=== PATIENT | male | born 1960 | race Caucasian/White ===

== ENCOUNTER 2019-08-18 08:34 | Emergency (ER) | payer OTHER ==
[~2019-08-18] VITALS: Ht 170.2 cm; Wt 83.9 kg
--- OUTSIDE RECORDS SUMMARY | ~2019-08-18 | XMS | Encounter Summary ---
Demographics + + + | Address | [address] | | | [place] [address] | + + + | Home Phone | | + + + | Preferred Language | Unknown | + + + | Marital Status | | + + + | Jewish Affiliation | 1013 | + + + | Race | Unknown | + + + | Ethnic Group | Unknown | + + + Author + + + | Author | [facility] | | | and [place] | + + + | Organization | [facility] | | | and [place] | + + + | Address | Unknown | + + + | Phone | Unavailable | + + + Support + + + + + | Name | Relationship | Address | Phone | + + + + + | Monica Hsu | RONEN | [place], | | | | | [place] [address] | | + + + + + Care Team Providers + +------+ + | Care Mail Service Coordinator Name | Role | Phone | + +------+ + | Tariq Byers PA-C | PCP | | + +------+ + Reason for Visit + + + | Reason | Comments | + + + | Follow-up | kidney stones | + + + Encounter Details +--------+---------+ + + + | Date | Type | Department | Care Team | Description | +--------+---------+ + + + | 06/29/ | Office | [facility] | Alvin Odom | Kidney stone on left | | 2019 | Visit | [address] | MD Kari [address] | side (Primary Dx); | | | | [place], [place] | [place], [place] | Gross hematuria | | | | [address] | [address] | | | | | [phone] | | | +--------+---------+ + + + Social History + + + +--------+------+ | Tobacco Use | Types | Packs/Day | Years | Date | | | | | Used | | + + + +--------+------+ | Current Every Day | Cigarettes | 0.5 | | | | Smoker | | | | | + + + +--------+------+ + +---+---+---+ | Smokeless Tobacco: | | | | | Never Used | | | | + +---+---+---+ + + +---------+ + | Alcohol Use | Drinks/We | oz/Week | Comments | | | ek | | | + + +---------+ + | No | 0 | 0.0 | twice weekly | | | Standard | | | | | drinks or | | | | | | | | | | equivalen | | | | | t | | | + + +---------+ + + + + | Sex Assigned at | Date Recorded | | | | + + + | Not on file | | + + + + + + + | Job Start Date | Occupation | Industry | + + + + | Not on file | Not on file | Not on file | + + + + + + + + | Travel History | Travel Start | Travel End | + + + + + + | No recent travel history available. | + + documented as of this encounter Last Filed Vital Signs + + + + | Vital Sign | Reading | Time Taken | + + + + | Blood Pressure | 130/74 | 06/29/2019 1538 PDT | + + + + | Pulse | 66 | 06/29/20191537 PDT | + + + + | Temperature | - | - | + + + + | Respiratory Rate | 17 | 06/29/20191537 PDT | + + + + | Oxygen Saturation | - | - | + + + + | Inhaled Oxygen | - | - | | Concentration | | | + + + + | Weight | 84.5 kg (186 lb 4.6 | 06/29/20191537 PDT | | | oz) | | + + + + | Height | 170.2 cm (5' 7") | 06/29/2019 1538 PDT | + + + + | Body Mass Index | 29.18 | 06/29/2019 1538 PDT | + + + + documented in this encounter Patient Instructions Patient Instructions Hazel Mccarty RN - 06/29/2019 15:45 PDTPreoperative Instructions Your surgery with Dr. Odom has been scheduled for July 14, 2019 at 10:45 AM at [facility]. Please report to the [facility] no later than 9:15 AM. REMEMBER: NOTHING TO EAT OR DRINK AFTER MIDNIGHT July 13, 2019. Take all of your usual medication s with a sip of water. NO ASPIRIN OR ASPIRIN PRODUCTS, NO FISH OIL OR VITAMIN E FOR ONE WEEK PRIOR TO SURGERY. Ty lenol (acetaminophen) and ibuprofen is OK. You will need someone to drive you home after surgery. You will need to get the following testing done prior to surgery: CBC and BMP. Please go to the [facility] today to complete these tests. Call us at [phone] with any questions. [x] Pain management booklet provided to patient. documented in this encounter Progress Notes Alvin Odom MD - 06/29/2019 5896 PDT Chief Complaint Patient presents with Follow-up kidney stones HPI Fawad Dowell is a 58 y.o. male patient of Tariq Byers PA-C here today for eval uation of lower urinary tract symptoms and history of kidney stones. Patient presents today to discuss CT scan His history of a large stone in the left renal pelvis. He continues to experience intermit tent bouts of gross hematuria as well as nausea and left-sided flank pain Assessment Fawad was seen today for follow-up. Diagnoses and all orders for this visit: Kidney stone on left side - Case Request - OR/ENDO/ASC/OB: CYSTOSCOPY Left URETEROSCOPY W/ LASER lithotriopsy and stent Gross hematuria - Case Request - OR/ENDO/ASC/OB: CYSTOSCOPY Left URETEROSCOPY W/ LASER lithotriopsy and stent Plan Patient stone has increased in size somewhat. Plan for ureteroscopy laser lithotripsy and stent. We discussed that this may need to be a staged procedure. Other risks include pain, bleeding, infection, urethral stricture, bladder injury, ureteral perforation, ureteral str icture, renal hematoma and need for further procedures. Past Medical History Past Medical History: Diagnosis Date History of hepatitis C History of kidney stones Lower urinary tract symptoms (LUTS) Methamphetamine use (HCC) Staph infection Tobacco dependence Tuberculosis Venereal disease Past Surgical History Past Surgical History: Procedure Laterality Date CHOLECYSTECTOMY, LAPAROSCOPIC KIDNEY STONE SURGERY ORTHOPEDIC SURGERY left wrist VASECTOMY Family History: Family History Problem Relation Age of Onset Prostate cancer Maternal Grandfather Social History: Social History Socioeconomic History Marital status: Spouse name: Not on file Number of children: Not on file Years of education: Not on file Highest education level: Not on file Tobacco Use Smoking status: Current Every Day Smoker Packs/day: 0.50 Types: Cigarettes Smokeless tobacco: Never Used Substance and Sexual Activity Alcohol use: No Alcohol/week: 0.0 oz Comment: twice weekly Drug use: Yes Types: Methamphetamines No Known Allergies Medications: Current Outpatient Medications: meloxicam (MOBIC) 15 mg tablet, take 1 tablet by mouth once daily, Disp: , Rfl: 0 tamsulosin (FLOMAX) 0.4 mg CAPS, Take 1 capsule by mouth daily (after dinner). For 7 d ays, Disp: , Rfl: Objective BP 130/74 | Pulse 66 | Resp 17 | Ht 1.702 m (5' 7") | Wt 84.5 kg (186 lb 4.6 oz) | BMI 29.18 kg/m General Appearance: Alert, cooperative, no distress, appears stated age, appears dishevele d Head: Normocephalic, without obvious abnormality, atraumatic Eyes: conjunctiva/corneas clear, EOM's intact Throat: Lips, mucosa, and tongue normal; no gross deformities, mmm Neck: Supple, symmetrical, no adenopathy Lungs: Regular, unlabored breathing MS Mild left CVA tenderness, no spinal tenderness, no scoliosis present Abdomen: Soft, mild left upper quadrant tenderness, no rebound or guarding Extremities: Extremities normal, atraumatic, no cyanosis, clubbing, or edema Pulses: Radial pulses 2+ and symmetric Skin: Warm and dry Lymph nodes: Cervical and supraclavicular nodes normal Neurologic: Gait normal, CN 2-12 grossly intact; Strength and sensation grossly normal in b ilateral upper and lower extremities Data: CT scan abdomen pelvis June 2019 I personally viewed and interpreted CT scan images. Significant for normal-appearing right kidney. There is no evidence of hydronephrosis stone or mass. Left kidney demonstrates a large stone in the renal pelvis approximately 20 mm x 17 x 14. This is increased in size sl ightly since October. There is no significant hydronephrosis noted. There does appear to be some smaller stones in the lower pole. Images not available CT scan November 03, 2018 1. Large left renal pelvis stone with mild pelvocaliectasis. Nonobstructing stone lower p ole right kidney 2. Mild concentric thickened appearance of the urinary bladder could suggest a cystitis c orrelate with urinalysis results 3. Severe lumbar spondylosis correlate with neurologic examination MRI would be more sens itive and specific for nerve root impingement. 4. Prior cholecystectomy Results for orders placed or performed in visit on 06/22/19 Urinalysis, Microscopic Only, with Culture if Indicated Result Value Ref Range WBC UA 10-15 (A) 0 - 2 /HPF RBC UA >100 (A) 0 - 2 /HPF SQUAMOUS EPITHELIAL UA 2-5 (A) 0 - 2 /LPF BACTERIA UA Negative Negative /HPF MUCUS UA Present (A) Negative /LPF URINE COMMENT Urine Culture Not Indicated POCT Urinalysis Result Value Ref Range Color, UA, POC Caterina (A) Yellow, Light Yellow Clarity, UA, POC Cloudy Glucose, UA, POC Negative Negative Bilirubin, UA, POC Negative Negative Ketones, UA, POC Negative Negative, 100 mg/dL Specific Lorraine, UA, POC 1.025 1.001 - 1.030 Blood, UA, POC Moderate (A) Negative pH, UA, POC 6.5 5.0, 6.0, 7.0, 8.0, 5.5, 6.5, 7.5 Protein, UA, POC 100 mg/dL (A) Negative Urobilinogen, UA, POC 0.2 0.2, Negative, Normal, < 0.2 mg/dL, 1 mg/dL, < 0.2 E.U./dl, 1.0 E.U./dL, 0.2 mg/dL Nitrite, UA, POC Negative Negative Leukocyte Esterase, UA, POC Negative Negative Reducing Substances, Urine Ictotest Negative Remark Lab Results Component Value Date CREA 0.99 03/01/2018 Tariq Byers PA-C's notes were reviewed in clinic today. No follow-ups on file.. This document was generated in part using voice recognition software. Frequent wrong word or sound-alike substitutions may have occurred due to the inherent limitations of the voice recognition software. Although I have attempted to edit the content, I have not thoroughly proofread this note, and pharmacy tech customer service errors are very likely to occur. CC: Tariq Byers PA-C documented in thi s encounter Plan of Treatment +--------+---------+ + + + | Date | Type | Specialty | Care Team | Description | +--------+---------+ + + + | 10/03/ | Office | Urology | Alvin Odom | | | 2018 | Visit | | MD Kari [address] [place] [address] | | | | | | [place], [place] | | | | | | [address] | | | | | | | | +--------+---------+ + + + | 10/11/ | Office | Orthopedic Surgery | Oliver Flowers | | | 2018 | Visit | | MD [address] | | | | | | [address] [place] | | | | | | [place] [address] | | | | | | [phone] | | | | | | | | +--------+---------+ + + + documented as of this encounter Procedures + +--------+ + + + | Procedure Name | Priori | Date/Time | Associated Diagnosis | Comments | | | ty | | | | + +--------+ + + + | IMAGING REPORT - | | 06/23/2019 | | Results for this | | EXTERNAL SCAN | | 0:00 PDT | | procedure are in the | | | | | | results section. | + +--------+ + + + documented in this encounter Results IMAGING REPORT - EXTERNAL SCAN (06/23/2019 0:00 PDT) + + + | Narrative | Performed At | + + + | Ordered by an | | | unspecified provider. | | + + + documented in this encounter Visit Diagnoses + + | Diagnosis | + + | Kidney stone on left side - Primary Calculus of kidney | + + | Gross hematuria | + + documented in this encounter
--- OUTSIDE RECORDS SUMMARY | ~2019-08-18 | XMS | Encounter Summary ---
Demographics + + + | Address | [address] | | | [place] [address] | + + + | Home Phone | | + + + | Preferred Language | Unknown | + + + | Marital Status | | + + + | Protestant Affiliation | 1013 | + + + | Race | Unknown | + + + | Ethnic Group | Unknown | + + + Author + + + | Author | [facility] | | | and [place] | + + + | Organization | [facility] | | | and [place] | + + + | Address | Unknown | + + + | Phone | Unavailable | + + + Support + + + + + | Name | Relationship | Address | Phone | + + + + + | Monica Hsu | RONEN | [place], | | | | | [place] [address] | | + + + + + Care Team Providers + +------+ + | Care Distribution Field Engineer Name | Role | Phone | + +------+ + | Tariq Byers PA-C | PCP | | + +------+ + Reason for Referral Evaluate & Treat (Routine) + + + + + + + | Status | Reason | Specialty | Diagnoses / | Referred By | Referred To | | | | | Procedures | Contact | Contact | + + + + + + + | Authorized | Specialty | Physical | Diagnoses | Allyson Flowers | | | Services | Therapy | Primary | [place] | [facility] | | | Required | | osteoarthrit | Judaism, | PHYSICAL | | | | | is of right | [address] | | | | | shoulder | [address] | [place] | | | | | Impingement | [place], | [place], [place] | | | | | syndrome of | [place] | [address] | | | | | left | [address] | Phone: | | | | | shoulder | Phone: | [phone] | | | | | Impingement | [phone] | Fax: | | | | | syndrome of | Fax: | [phone] | | | | | right | [phone] | | | | | | shoulder | | | + + + + + + + Reason for Visit + + + | Reason | Comments | + + + | New Patient | | + + + | Shoulder Pain | Bilateral | + + + Evaluate & Treat (Routine) + +--------+ + + + + | Status | Reason | Specialty | Diagnoses / | Referred By | Referred To | | | | | Procedures | Contact | Contact | + +--------+ + + + + | Authorized | | Orthopedic | Diagnoses | [place], | Kristie, | | | | Surgery | Bilateral | Tariq | Oliver | | | | | shoulder | PA-C [address] | [address] | | | | | pain | [place] [facility] | [address] | | | | | | [place] | [address] [place] | | | | | | [place], [place] | [place], [place] | | | | | | [address] | [address] | | | | | | Phone: | Phone: | | | | | | [phone] | [phone] | | | | | | Fax: | Fax: | | | | | | [phone] | [phone] | + +--------+ + + + + Encounter Details +--------+---------+ + + + | Date | Type | Department | Care Team | Description | +--------+---------+ + + + | 08/11/ | Office | [facility] | Oliver Flowers | Primary | | 2019 | Visit | ORTHOPEDIC SURGERY | MD [address] | osteoarthritis of | | | | [address] [facility] | [address] | right shoulder | | | | [place], [place] | [place] [address] | (Primary Dx); | | | | [address] | [phone] | Impingement syndrome | | | | [phone] | | of left shoulder; | | | | | | Impingement syndrome | | | | | | of right shoulder | +--------+---------+ + + + Social History [...] | | + + +---------+ + | Not Currently | 0 | 0.0 | | | | Standard | | | [...] + + + | Blood Pressure | - | - | + + + + | Pulse | - | - | + + + + | Temperature | - | - | + + + + | Respiratory Rate | - | - | + + + + | Oxygen Saturation | - | - | + + + + | Inhaled Oxygen | - | - | | Concentration | | | + + + + | Weight | 87.5 kg (192 lb 14.4 | 08/11/20191610 PDT | | | oz) | | + + + + | Height | 170.2 cm (5' 7") | 08/11/2019 1611 PDT | + + + + | Body Mass Index | 30.21 | 08/11/2019 1611 PDT | + + + + documented in this encounter Progress Notes Oliver Flowers MD - 08/11/2019 1600 PDTFormatting of this note might be differe nt from the original. [facility] HISTORY AND PHYSICAL EXAMINATION Pt. Name/Age/: Fawad Dowell 58 y.o. 1960 Primary Care Physician: Tariq Byers Chief Complaint/Reason for Visit: New Patient and Shoulder Pain (Bilateral) History of Present Illness: The patient is a pleasant 58 y.o. male who presents with bilate ral shoulder pain. The patient reports that his shoulders hurt him significantly. They hav e hurt him for years. There has been no particular injury to them. He attributes it to wea r and tear over the years. 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 He does also state that he has some numbness on top of his left shoulder. He suspects that he might have a rotator cuff tear or arthritis in both shoulders. He repo rts that laying on his shoulders particularly causes him pain. Rotating from side to side s eems to make it feel better. He has taken Mobic for this. He has done no steroid injection s and had no physical therapy. His pain is a 6 out of 10 at baseline. It is a 9 out of 10 at its worst. He reports that his pain has been the same over time. He is able to do his n ormal daily activities albeit slowly. The patient is a current smoker. He does have a hist ory of neck and back pain. His neck pain has generally been worse than his back pain. Past Medical History: Past Medical History: Diagnosis Date History of hepatitis C History of kidney stones Kidney stone on left side 06/29/2019 Lower urinary tract symptoms (LUTS) Methamphetamine use (HCC) Staph infection Tobacco dependence Tuberculosis Venereal disease Past Surgical History: Procedure Laterality Date CHOLECYSTECTOMY, LAPAROSCOPIC KIDNEY STONE SURGERY ORTHOPEDIC SURGERY left wrist URETEROSCOPY Left 07/14/2019 Procedure: CYSTOSCOPY Left URETEROSCOPY W/ LASER lithotriopsy and stent PLACEMENT; Surgeo n: Alvin Odom MD; Location: [facility] MAIN OR VASECTOMY Allergies: No Known Allergies Current Medications: Current Outpatient Medications Medication Sig Dispense Refill HYDROcodone-acetaminophen (NORCO) 5-325 mg per tablet Take 1-2 tablets by mouth every 4 hours as needed for Pain. (Patient not taking: Reported on 08/11/2019) 10 tablet 0 meloxicam (MOBIC) 15 mg tablet take 1 tablet by mouth once daily 0 tamsulosin (FLOMAX) 0.4 mg CAPS Take 1 capsule by mouth nightly for 30 days. (Patient n ot taking: Reported on 08/11/2019) 30 capsule 0 varenicline (CHANTIX ADRIANNA) 0.5 MG X 11 & 1 MG X 42 tablet Take 0.5 mg one daily on days 1-3 and 0.5 mg twice daily on days 4-7. Then 1 mg twice daily for a total of 12 weeks. No current facility-administered medications for this visit. Family History: Family History Problem Relation Age of Onset Prostate cancer Maternal Grandfather Social History: Social History Socioeconomic History Marital status: Spouse name: Not on file Number of children: Not on file Years of education: Not on file Highest education level: Not on file Social Needs Financial resource strain: Not on file Food insecurity - worry: Not on file Food insecurity - inability: Not on file Transportation needs - medical: Not on file Transportation needs - non-medical: Not on file Occupational History Not on file Tobacco Use Smoking status: Current Every Day Smoker Packs/day: 0.50 Types: Cigarettes Smokeless tobacco: Never Used Substance and Sexual Activity Alcohol use: Not Currently Alcohol/week: 0.0 oz Drug use: Not Currently Types: Methamphetamines Comment: None since January 19, 2019 Sexual activity: Not on file Other Topics Concern Not on file Social History Narrative Not on file Review of Systems All of these are negative unless otherwise marked Eyes: [] Double vision [x] Glasses/contacts [x] Failing vision Respiratory: [] Asthma/Wheezing [] Pneumonia [] Night sweats [] Shortness of breath [] Chronic cough [] Coughing up blood [] Exposure to tuberculosis Cardiovascular: [] Heart Problems [] Hypertension [] Heart murmur [] Palpitations [] Rheumatic fever [] Phlebitis [] Chest pain [] Ankle swelling [] Leg cramps [] Racin g heart [] Skipping beats [] Blood clots Urinary Tract: [] Painful urination [x] Kidney Stones [] Any urine leakage [] Weak urine stream [x] Night urination [] Urine infections [] Bedwetting [x] Blood in urine Ear/Nose/Throat: [] Frequent Colds [] Sinus Disease [] Nose obstruction [] Sneezing Spells [] Change in taste [x] Artificial teeth [x] Ears ringing [] Ear pain [x] Hearing lo ss [x] Teeth problems [] Hoarseness [] Neck swelling [] Sore throat [] Congestion [] Nosebleeds [] Nasal allergies Gastrointestinal: [x] Abdominal pain [] Heartburn [] Blood from rectum [] Colitis [x] Gallbladder problems [] Troub le swallowing [] Bloated stomach [] Change in stools [] Vomiting blood [] Nausea [] Hemorrhoids [] Jaundice [ x] Hepatitis [] Diarrhea [] Constipation [] Diverticulitis Musculoskeletal: [] Physical handicaps [x] Back or shoulder pain []Rheumatoid disease [] Osteoarthritis [x] Joint pain [x] Joint swelling []Gout [] Leg cramps at night Skin: [] Skin rashes [] Itching/Burning [] Skin bruises easil y [] Artificial tanning [] Skin cancer [] Hair loss [] Changes in moles Psychiatric: [] Depression [] Suicidal thoughts [] Sleep pattern changes [] Appetite changes [x] Recent counseling [] Nervousness/anxiety [] Physical violence [x] Marital problems Neurological: [] Headaches [] Seizures [] Stroke/TIA [] Faintness [] Tremors [x] Numbness [] Dizziness [] Changes in handwriting [] Memory loss [] Shooting pains Endocrine: [] Thyroid [] Diabetes Systemic: [x]Weight loss/gain (over 10 lbs) []Fever/chills []Fatigue [x] Sleeping Difficulties [] Speech change [] Voice change Admission Weight: Weight: 87.5 kg (192 lb 14.4 oz) BMI: Body mass index is 30.21 kg/m . Physical Examination: Ht 1.702 m (5' 7") | Wt 87.5 kg (192 lb 14.4 oz) | BMI 30.21 kg/m General: Alert, oriented, no acute distress HEENT: Normocephalic, atraumatic Cardiovascular: Regular rate and rhythm Respiratory: Breathing normally at a regular rate Ortho Exam Bilateral Shoulder Exam Right Left Forward Flexion 160 160 Abduction 160 160 External Rotation 45 45 Internal rotation T10 T10 Tender to Palpation: absent External Rotation Strength 5/5 Internal Rotation Strength 5/5 Hawkin's Negative Neer's Positive Delaney's Positive Radial pulse 2+. Sensation intact to light touch in the first dorsal webspace, and the pads of the small and index fingers. Able to flex and extend the thumb at the interphalangeal sade int, make an "ok" sign, adduct and abduct the fingers, and oppose the thumb to the small fin sun. His thumbs are internally rotated when facing forward and relax. This consistent with some forward posturing. He does localize a lot of the pain to his periscapular musculature. Diagnostic Studies: Imaging Axillary laterals of the bilateral shoulders obtained today in addition to previous 3 views of the shoulders dated 01/03/2019. The patient has a well reduced glenohumeral joint on all views. The humeral head is centered on the glenoid in all views. He has mild to moderate osteoarthrosis of the right gland humeral joint with no significant osteoarthrosis of the le ft glenohumeral joint. Labs- Lab Results Component Value Date NA 136 06/29/2019 K 3.7 06/29/2019 CL 105 06/29/2019 CO2 28 06/29/2019 ANIONGAP 3 06/29/2019 GLU 103 06/29/2019 BUN 15 06/29/2019 CREA 0.99 06/29/2019 GFRNONAA >60 06/29/2019 CALCIUM 9.8 06/29/2019 ALBUMIN 4.2 07/14/2019 BILITOT 0.9 07/14/2019 TOTALPROTEIN 6.6 07/14/2019 AST 21 07/14/2019 ALT 20 07/14/2019 ALKPHOS 72 07/14/2019 WBC 6.2 06/29/2019 HGB 14.9 06/29/2019 HCT 43.5 06/29/2019 MCV 96.7 06/29/2019 LABPLAT 219 11/03/2018 PLT 245 06/29/2019 INR 0.9 07/14/2019 Assessment and Plan: 1. Primary osteoarthritis of right shoulder XR Shoulder Left 1 Vw XR Shoulder Right 1 Vw 2. Impingement syndrome of left shoulder 3. Impingement syndrome of right shoulder The patient is a pleasant 58 y.o. male who presents with bilateral shoulder pain with poor posturing and mild to moderate right shoulder osteoarthritis. Treatment options were discuss ed with the patient including non-operative treatment modalities. Considering the nature of the patient's condition, decision was made to proceed with bilateral right shoulder subacrom ial injections. I also want him to work with therapy on his shoulder posturing. He did not really have pain specifically localized to the joint. He pointed to the side of his arm an d seated there is pain can radiate down the side of his arm. This would be more consistent with pain around the rotator cuff. Hopefully between the injections and therapy we can make him feel a lot better. I will see him back in 2 months. Risks, benefits and alternatives to injection were discussed with the patient. All of the p atient's questions were answered regarding the procedure. Consent was obtained. The patient agreed to undergo an injection of the Bilateral subacromial joints. The area was prepared st erilely using Betadine. A cold spray was used to numb the skin. 5 mLs of 1% lidocaine and 40 mg of kenalog were injected in the standard fashion first in the left side and then in the right side. This was well tolerated by the patient. Follow-up: Return in about 2 months (around 10/11/2019). with no x-ray Portions of this report were transcribed using voice recognition software. Every effort wa s made to ensure accuracy; however, inadvertent computerized prevention specialist errors may be pre sent. I appreciate the opportunity to help with the management of this patient. Oliver Flowers MD documented in this encounter Plan of Treatment +--------+---------+ + + + | Date | Type | Specialty | Care Team | Description | +--------+---------+ + + + | 10/03/ | Office | Urology | Alvin Odom | | | 2018 | Visit | | MD Kari [address] | | | | | | [place] | | | | | | [address] | | | | | | | | +--------+---------+ + + + | 10/11/ | Office | Orthopedic Surgery | Oliver Flowers | | | 2018 | Visit | | MD [address] | | | | | | [address] | | | | | | [place] [address] | | | | | | [phone] | | | | | | | | +--------+---------+ + + + + +--------+ + + | Name | Priori | Associated Diagnoses | Order Schedule | | | ty | | | + +--------+ + + | [facility] Physical | Routin | Primary | Ordered: 08/11/2019 | | Therapy, External - AMB Referral | e | osteoarthritis of | | | | | right shoulder | | | | | Impingement syndrome | | | | | of left shoulder | | | | | Impingement syndrome | | | | | of right shoulder | | + +--------+ + + documented as of this encounter Results XR Shoulder Right 1 Vw (08/11/2019 16:09 PDT) + + | Specimen | + + | | + + + + + | Narrative | Performed At | + + + | EXAM:XR SHOULDER RIGHT 1 VW CLINICAL HISTORY: BILATERAL SHOULDER | [facility] | | PAIN COMPARISON: 01/03/2019. FINDINGS/IMPRESSION -A single | | | axillary view of the shoulder shows no malalignment. There are | | | degenerative changes along the margin of the glenoid. Mild | | | hypertrophic change in the distal clavicle. Dictated and Signed | | | by: Prem Elizalde MD Electronically signed: 08/11/2019 5:31 PM | | | | | + + + + + | Procedure Note | + + | Mike, Shiva Results In - 08/11/2019 1734 PDT EXAM:XR SHOULDER RIGHT 1 VW | | | | CLINICAL HISTORY: BILATERAL SHOULDER PAIN | | | | COMPARISON: 01/03/2019. | | | | FINDINGS/IMPRESSION -A single axillary view of the shoulder shows no | | malalignment. There are degenerative changes along the margin of the glenoid. | | Mild hypertrophic change in the distal clavicle. | | | | | | Dictated and Signed by: Prem Elizalde MD | | Electronically signed: 08/11/2019 5:31 PM | + + + +---------+ + + | Performing | Address | City/State/Zipcode | Phone Number | | Organization | | | | + +---------+ + + | [facility] | | | | + +---------+ + + XR Shoulder Left 1 Vw (08/11/2019 16:09 PDT) + + | Specimen | + + | | + + + + + | Narrative | Performed At | + + + | EXAM:XR SHOULDER LEFT 1 VW CLINICAL HISTORY: BILATERAL SHOULDER | [facility] | | PAIN COMPARISON: 01/03/2019 FINDINGS/IMPRESSION -A single | | | axillary view of the left shoulder shows no malalignment. Mild | | | degenerative changes along the margin of the glenoid. Dictated | | | and Signed by: Prem Elizalde MD Electronically signed: 08/11/2019 | | | 5:31 PM | | + + + + + | Procedure Note | + + | Shiva Mckeon Results In - 08/11/2019 1734 PDT EXAM:XR SHOULDER LEFT 1 VW | | | | CLINICAL HISTORY: BILATERAL SHOULDER PAIN | | | | COMPARISON: 01/03/2019 | | | | FINDINGS/IMPRESSION -A single axillary view of the left shoulder shows no | | malalignment. Mild degenerative changes along the margin of the glenoid. | | | | | | Dictated and Signed by: Prem Elizalde MD | | Electronically signed: 08/11/2019 5:31 PM | + + + +---------+ + + | Performing | Address | City/State/Zipcode | Phone Number | | Organization | | | | + +---------+ + + | [facility] | | | | + +---------+ + + documented in this encounter Visit Diagnoses + + | Diagnosis | + + | Primary osteoarthritis of right shoulder - Primary Primary localized osteoarthrosis, | | shoulder region | + + | Impingement syndrome of left shoulder Other affections of shoulder region, not | | elsewhere classified | + + | Impingement syndrome of right shoulder Other affections of shoulder region, not | | elsewhere classified | + + documented in this encounter Administered Medications + +--------+ +-------+------+ + | Medication Order | MAR | Action | Dose | Rate | Site | | | Action | Date | | | | + +--------+ +-------+------+ + | triamcinolone acetonide | Given | 08/11/20 | 40 mg | | Shoulder | | (KENALOG-40) 40 mg/mL injection | | 19 16:35 | | | -Right | | 40 mg 40 mg, Intra-articular, | | PDT | | | | | ONCE, [facility] 08/11/19 at 1745, For 1 | | | | | | | dose, Fabrizio well. Not for IV | | | | | | | use., | | | | | | + +--------+ +-------+------+ + +---+---+ | | | +---+---+ + +-------+ +-------+---+ + | triamcinolone acetonide | Given | 08/11/20 | 40 mg | | Shoulder | | (KENALOG-40) 40 mg/mL injection | | 19 16:35 | | | -Left | | 40 mg 40 mg, Intra-articular, | | PDT | | | | | ONCE, [facility] 08/11/19 at 1745, For 1 | | | | | | | dose, Fabrizio well. Not for IV | | | | | | | use., | | | | | | + +-------+ +-------+---+ + +---+---+ | | | +---+---+ documented in this encounter
--- OUTSIDE RECORDS SUMMARY | ~2019-08-18 | XMS | Encounter Summary ---
Demographics + + + | Address | [address] | | | [place] [address] | + + + | Home Phone | | + + + | Preferred Language | Unknown | + + + | Marital Status | | + + + | Tenriism Affiliation | 1013 | + + + | Race | Unknown | + + + | Ethnic Group | Unknown | + + + Author + + + | Author | [facility] | | | and [place] | + + + | Organization | [facility] | | | and [place] | + + + | Address | Unknown | + + + | Phone | Unavailable | + + + Support + + + + + | Name | Relationship | Address | Phone | + + + + + | Monica Hsu | RONEN | [place], | | | | | [place] [address] | | + + + + + Care Team Providers + +------+ + | Care Home Delivery Driver Name | Role | Phone | + +------+ + | Tariq Byers PA-C | PCP | | + +------+ + Reason for Visit Auth/Cert +--------+--------+ + + + + | Status | Reason | Specialty | Diagnoses / | Referred By | Referred To | | | | | Procedures | Contact | Contact | +--------+--------+ + + + + | | | | Diagnoses | | eLi, | | | | | Kidney | | Alvin Pierce, | | | | | anneliese sahu | | MD Shayy GELLER | | | | | left side | | [address] [place] | | | | | [place] | | [place], [place] | | | | | hematuria | | [address] Phone: | | | | | Procedures | | [phone] | | | | | [place] | | Fax: | | | | | CYSTO/URETER | | [phone] | | | | | O | | | | | | | W/LITHOTRIPS | | | | | | | Y &INDWELL | | | | | | | STENT INSRT | | | | | | | CYSTOSCOPY | | | | | | | Left | | | | | | | URETEROSCOPY | | | | | | | W/ LASER | | | | | | | lithotriopsy | | | | | | | and stent | | | +--------+--------+ + + + + Encounter Details +--------+ + + + + | Date | Type | Department | Care Team | Description | +--------+ + + + + | 07/14/ | Hospital | [facility] | Alvin Odom | Kidney stone on left | | 2019 | Encounter | [facility] | MD Shayy Pierce | side; Gross | | | | [address] | [place], [place] | hematuria | | | | [place], [place] | [address] | | | | | [address] | | | | | | [phone] | | | +--------+ + + + + Social History + + [...] + + + | Blood Pressure | 130/80 | 07/14/2019 1200 PDT | + + + + | Pulse | 64 | 07/14/2019 1200 PDT | + + + + | Temperature | 37.1 C (98.8 F) | 07/14/2019 1040 PDT | + + + + | Respiratory Rate | 12 | 07/14/2019 1115 PDT | + + + + | Oxygen Saturation | 99% | 07/14/2019 1200 PDT | + + + + | Inhaled Oxygen | - | - | | Concentration | | | + + + + | Weight | 85.9 kg (189 lb 6 | 07/14/2019638 PDT | | | oz) | | + + + + | Height | 170.2 cm (5' 7") | 07/14/2019638 PDT | + + + + | Body Mass Index | 29.66 | 07/14/2019638 PDT | + + + + documented in this encounter Discharge Instructions Instructions Lisette Moreno RN - 07/14/2019 Cystoscopy Cystoscopy is a procedure that lets your doctor look directly inside your urethra and bladd er. It can be used to: Help diagnose a problem with your urethra, bladder, or kidneys. Take a sample (biopsy) of bladder or urethral tissue. Treat certain problems (such as removing kidney stones). Place a stent to bypass an obstruction. Take special X-rays of the kidneys. Based on the findings, your doctor may recommend other tests or treatments. What is a cystoscope? A cystoscope is a telescope-like instrument that contains lenses and fiberoptics (small gla ss wires that make bright light). The cystoscope may be straight and rigid, or flexible to b end around curves in the urethra. The doctor may look directly into the cystoscope, or proje ct the image onto a monitor. Getting ready Ask your doctor if you should stop taking any medicines before the procedure. Ask whether you should avoid eating or drinking anything after midnight before the proce dure. Follow any other instructions your doctor gives you. Tell yourdoctor before the exam if you: Take any medicines, such as aspirin or blood thinners Have allergies to any medicines Are The procedure Cystoscopy is done in the doctor s office, surgery center, or hospital. The doctor and a nurse are present during the procedure. It takes only a few minutes, longer if a biopsy, X-r ay, or treatment needs to be done. During the procedure: You lie on an exam table on your back, knees bent and legs apart. You are covered with a drape. Your urethra and the area around it are washed. Anesthetic jelly may be applied to numb the urethra. Other pain medicine is usually not needed. In some cases, you may be offered a mild sedative to help you relax. If a more extensive procedure is to be done, such as a biop sy or kidney stone removal, general anesthesia may be needed. The cystoscope is inserted. A sterile fluid is put into the bladder to expand it. You ma y feel pressure from this fluid. When the procedure is done, the cystoscope is removed. After the procedure If you had a sedative, general anesthesia, or spinal anesthesia, you must have someone driv e you home. Once you re home: Drink plenty of fluids. You may have burning or light bleeding when you urinate this is normal. Medicines may be prescribed to ease any discomfort or prevent infection. Take these as d irected. Call your doctor if you have heavy bleeding or blood clots, burning that lasts more than a day, a fever [id number] (38 C), or trouble urinating. Date Last Reviewed: 11/09/201619996587-1493 [employer]. [address] [place] [address]. All righ ts reserved. This information is not intended as a substitute for professional medical care. Always follow your healthcare professional's instructions. Recovery After Procedural Sedation (Adult) You have been given medicine by vein to make you sleep during your procedure. This may have included both a pain medicine and sleeping medicine. Most of the effects have worn off. But you may still have some drowsiness for the next 6 to 8 hours. Home care Follow these guidelines when you get home: For the next 8 hours, you should be watched by a responsible adult. This person should m elisabeth sure your condition is not getting worse. Don't drink any alcoholfor the next [address], operate dangerous machinery,make important business or personal decisions , or sign legal documentsduring the next 24 hours. Note: Your healthcare provider may tell you not to take any medicine by mouth for pain or s leep in the next 4 hours. These medicines may react with the medicines you were given in the hospital. This could cause a much stronger response than usual. Follow-up care Follow up with your healthcare provider if you are not alert and back to your usual level o f activity within 12 hours. When to seek medical advice Call your healthcare provider right away if any of these occur: Drowsiness gets worse Weakness or dizziness gets worse Repeated vomiting You can't be awakened Date Last Reviewed: 08/26/201619992950-0376 [employer]. [address] [place] [address]. All righ ts reserved. This information is not intended as a substitute for professional medical care. Always follow your healthcare professional's instructions. Patient is to follow-up in 2 weeks with cystoscopy and stent removal. documented in this encounter Medications at Time of Discharge + + + +---------+ + + | Medication | Sig | Dispensed | Refills | Start | End Date | | | | | | Date | | + + + +---------+ + + | meloxicam (MOBIC) | take 1 tablet by | | 0 | 05/30/20 | | | 15 mg tablet | mouth once daily | | | 19 | | + + + +---------+ + + | | Take 1-2 tablets by | 30 | 0 | 07/14/20 | | | HYDROcodone-acetamin | mouth every 4 hours | tablet | | 19 | 9 | | ophen (NORCO) 5-325 | as needed for Pain. | | | | | | mg per tablet | | | | | | + + + +---------+ + + | | TAKE 1 TABLET BY | | 0 | 06/29/20 | | | HYDROcodone-acetamin | MOUTH EVERY 6 HOURS | | | 19 | 9 | | ophen (NORCO) 5-325 | NEEDED FOR | | | | | | mg per tablet | MODERATE TO SEVERE | | | | | | | PAIN DO NOT EXCEED 4 | | | | | | | TABLETS IN 24 HOURS | | | | | + + + +---------+ + + | tamsulosin | Take 1 capsule by | 30 | 0 | 07/14/20 | | | (FLOMAX) 0.4 mg CAPS | mouth nightly for 30 | capsule | | 19 | 9 | | | days. | | | | | + + + +---------+ + + | tamsulosin | Take 1 capsule by | | 0 | 11/01/20 | | | (FLOMAX) 0.4 mg CAPS | mouth daily (after | | | 18 | 9 | | | dinner). For 7 days | | | | | + + + +---------+ + + documented as of this encounter Plan of Treatment +--------+---------+ + [...] | | | | | | [place] [address] | | | | | | [phone] | | | | | | | | +--------+---------+ + + + documented as of this encounter Procedures + +--------+ + + + | Procedure Name | Priori | Date/Time | Associated Diagnosis | Comments | | | ty | | | | + +--------+ + + + | FL PYELOGRAM | Routin | 07/14/2019 | | Results for this | | RETROGRADE | e | 10:35 PDT | | procedure are in the | | | | | | results section. | + +--------+ + + + | CALCULI ANALYSIS | Routin | 07/14/2019 | | Results for this | | | e | 10:30 PDT | | procedure are in the | | | | | | results section. | + +--------+ + + + | CYSTOSCOPY | | 07/14/2019 | Kidney stone on | | | URETEROSCOPY W/ | | 8:47 PDT | left side Gross | | | LASER | | | hematuria | | + +--------+ + + + | PTT | Routin | 07/14/2019 | | Results for this | | | e | 7:43 PDT | | procedure are in the | | | | | | results section. | + +--------+ + + + | PROTIME INR | Routin | 07/14/2019 | | Results for this | | | e | 7:43 PDT | | procedure are in the | | | | | | results section. | + +--------+ + + + | HEPATIC FUNCTION | Routin | 07/14/2019 | | Results for this | | PANEL | e | 7:43 PDT | | procedure are in the | | | | | | results section. | + +--------+ + + + documented in this encounter Results FL Jonny Retrograde (07/14/2019 10:35 PDT) + + | Specimen | + + | | + + + + + | Narrative | Performed At | + + + | This exam has been auto-finalized and the interpretation may exist | [facility] | | elsewhere in the chart. | | + + + + +---------+ + + | Performing | Address | City/State/Zipcode | Phone Number | | Organization | | | | + +---------+ + + | [facility] | | | | + +---------+ + + Calculi Analysis (07/14/2019 10:30 PDT) + + + + + + | Component | Value | Ref Range | Performed | Pathologist | | | | | At | Signature | + + + + + + | CALCULI | CommentComment: Specimen | mm | REFERENCE | | | SIZE | received as fragments. | | [facility] | | | | | | - BKR | | + + + + + + | Stone | CommentComment: | | REFERENCE | | | Composition | Percentage (Represents | | [facility] | | | | the % composition) | | - BKR | | + + + + + + | Color | Aranda | | REFERENCE | | | | | | [facility] | | | | | | - [facility]KR | | + + + + + + | Calculi | 206.8 | mg | REFERENCE | | | Weight | | | [facility] | | | | | | - BKR | | + + + + + + | Ca | 40 | % | REFERENCE | | | Oxalate,Dih | | | [facility] | | | ydrate | | | - BKR | | + + + + + + | Ca | 45 | % | REFERENCE | | | Oxalate,Mon | | | [facility] | | | ohydr. | | | - BKR | | + + + + + + | STONE CA | 15 | % | REFERENCE | | | PHOSPHATE | | | [facility] | | | | | | - BKR | | + + + + + + | Nidus | No Nidus visualized | | REFERENCE | | | | | | [facility] | | | | | | - BKR | | + + + + + + | Comment | Note:Comment: Please do | | REFERENCE | | | | not submit specimens on | | [facility] | | | | Q-Tips, in tape, on | | - BKR | | | | filters, or inliquids | | | | | | such as blood, urine or | | | | | | formalin. This may | | | | | | cause | | | | | | unnecessarybiohazards, | | | | | | erroneous results and/or | | | | | | delay in the processing | | | | | | of thespecimen. | | | | + + + + + + | Photo | CommentComment: | | REFERENCE | | | | Photograph will follow | | [facility] | | | | under separate cover. | | - BKR | | + + + + + + | CALCULI | CommentComment: | | REFERENCE | | | COMMENT | Physician questions | | [facility] | | | | regarding Calculi | | - BKR | | | | Analysis contact [facility] | | | | | | at:[phone]. | | | | + + + + + + | Please note | CommentComment: Calculi | | REFERENCE | | | | report with photograph | | [facility] | | | | will follow via | | - BKR | | | | computer, mail orcourier | | | | | | delivery. | | | | + + + + + + | Disclaimer | CommentComment: This | | REFERENCE | | | | test was developed and | | LAB [facility] | | | | its performance | | - BKR | | | | characteristicsdetermine | | | | | | d by [facility]. It has not | | | | | | been cleared or | | | | | | approvedby the Food and | | | | | | Drug Administration. | | | | + + + + + + + + | Specimen | + + | Tissue | + + + + + | Narrative | Performed At | + + + | Performed at: 01 - [facility] [address] [facility], | REFERENCE LAB | | [place], [place] [id number] Certified Tower Climber: Yovanny Walsh MD, | [facility] | | Phone: [phone] | | + + + + + + + + | Performing | Address | City/State/Zipcode | Phone Number | | Organization | | | | + + + + + | REFERENCE LAB | [address] [facility] [address] | [place] [address] | [phone] | | [facility] - [facility] | [address] | | | + + + + + Hepatic Function Panel (07/14/2019 7:43 PDT) + +-------+ + + + | Component | Value | Ref Range | Performed | Pathologist | | | | | At | Signature | + +-------+ + + + | Bilirubin | 0.9 | 0.3 - 1.2 mg/dL | [facility] | | | Total | | | [facility] | | | | | | [facility] | | | | | | [facility] - | | | | | | LABORATORY | | + +-------+ + + + | Total | 6.6 | 5.7 - 8.2 g/dL | [facility] | | | Protein | | | [facility] | | | | | | MEDICAL | | | | | | CENTER - | | | | | | LABORATORY | | + +-------+ + + + | Albumin | 4.2 | 3.2 - 4.8 g/dL | [facility] | | | | | | [facility] | | | | | | MEDICAL | | | | | | CENTER - | | | | | | LABORATORY | | + +-------+ + + + | AST | 21 | 0 - 34 U/L | [facility] | | | | | | [facility] | | | | | | MEDICAL | | | | | | CENTER - | | | | | | LABORATORY | | + +-------+ + + + | ALT | 20 | 10 - 49 U/L | [facility] | | | | | | [facility] | | | | | | MEDICAL | | | | | | CENTER - | | | | | | LABORATORY | | + +-------+ + + + | Alkaline | 72 | 46 - 116 U/L | [facility] | | | Phosphatase | | | [facility] | | | | | | MEDICAL | | | | | | CENTER - | | | | | | LABORATORY | | + +-------+ + + + | Globulin | 2.4 | 2.1 - 3.8 g/dL | [facility] | | | | | | [facility] | | | | | | [facility] | | | | | | C[facility] - | | | | | | LABORATORY | | + +-------+ + + + | Albumin/Mikayla | 1.8 | 0.8 - 1.9 | [facility] | | | bulin Ratio | | | [facility] | | | | | | MEDICAL | | | | | | CENTER - | | | | | | LABORATORY | | + +-------+ + + + | Bilirubin, | 0.20 | 0.00 - 0.30 | [facility] | | | Direct | | mg/dl | [facility] | | | | | | MEDICAL | | | | | | CENTER - | | | | | | LABORATORY | | + +-------+ + + + + + | Specimen | + + | Blood | + + + + + + + | Performing | Address | City/State/Zipcode | Phone Number | | Organization | | | | + + + + + | [facility] | [address] | [place] | [phone] | | [facility] | | [address] | | | - LABORATORY | | | | + + + + + PTT (07/14/2019 7:43 PDT) + +-------+ + + + | Component | Value | Ref Range | Performed | Pathologist | | | | | At | Signature | + +-------+ + + + | aPTT | 36 | 22 - 36 seconds | [facility] | | | | | | [facility] | | | | | | MEDICAL | | | | | | CENTER - | | | | | | LABORATORY | | + +-------+ + + + + + | Specimen | + + | Blood | + + + + + + + | Performing | Address | City/State/Zipcode | Phone Number | | Organization | | | | + + + + + | [facility] | [address] | [place] | [phone] | | [facility] | | [address] | | | - LABORATORY | | | | + + + + + Protime INR (07/14/2019 7:43 PDT) + + + + + + | Component | Value | Ref Range | Performed | Pathologist | | | | | At | Signature | + + + + + + | Prothrombin | 12.5 | 11.3 - 13.9 | [facility] | | | Time | | seconds | [facility] | | | | | | MEDICAL | | | | | | CENTER - | | | | | | LABORATORY | | + + + + + + | INR | 0.9Comment: Usual Oral | 0.9 - 1.1 | [facility] | | | | Anticoagulation | | [facility] | | | | Range: 2.0 - | | MEDICAL | | | | 3.0High Level Oral | | CENTER - | | | | Anticoagulation Range: | | LABORATORY | | | | 2.5 - 3.5 | | | | + + + + + + + + | Specimen | + + | Blood | + + + + + + + | Performing | Address | City/State/Zipcode | Phone Number | | Organization | | | | + + + + + | [facility] | [address] | [place] | [phone] | | [facility] | | [address] | | | - LABORATORY | | | | + + + + + documented in this encounter Visit Diagnoses + + | Diagnosis | + + | Kidney stone on left side Calculus of kidney | + + | Gross hematuria | + + documented in this encounter Admitting Diagnoses + + | Diagnosis | + + | Kidney stone on left side Calculus of kidney | + + | Gross hematuria | + + documented in this encounter Administered Medications + +--------+ + +------+------+ | Medication Order | MAR | Action | Dose | Rate | Site | | | Action | Date | | | | + +--------+ + +------+------+ | acetaminophen (TYLENOL) tablet | Given | 07/14/20 | 1,000 mg | | | | 1,000 mg 1,000 mg, Oral, ONCE, | | 19 7:24 | | | | | [facility] 07/14/19 at 0730, For 1 dose, | | PDT | | | | | Pre-op | | | | | | + +--------+ + +------+------+ + +---+ | | | + +---+ | acetaminophen (TYLENOL) tablet | | | 1,000 mg 1,000 mg, Oral, EVERY 8 | | | HOURS (3 times per day), First | | | dose on [facility] 07/14/19 at 1400, Start | | | 8 hours after pre-op dose., | | | Post-op/Phase II | | + +---+ | | | + +---+ | albuterol-ipratropium 2.5-0.5 | | | mg/3 mL nebulizer solution 3 mL | | | 3 mL, Nebulization, ONCE PRN, | | | Wheezing, Starting [facility] 07/14/19 at | | | 0703, For 1 dose, Pre-op | | + +---+ | | | + +---+ | albuterol-ipratropium 2.5-0.5 | | | mg/3 mL nebulizer solution 3 mL | | | 3 mL, Nebulization, ONCE PRN, | | | Wheezing, Shortness of Breath, | | | Starting [facility] 07/14/19 at 0851, For | | | 1 dose, Recovery/Phase I | | + +---+ | | | + +---+ + +-------+ +--------+---+---+ | ciprofloxacin (CIPRO) tablet | Given | 07/14/20 | 500 mg | | | | 500 mg 500 mg, Oral, ONCE, [facility] | | 19 7:25 | | | | | 07/14/19 at 0730, For 1 dose, Give | | PDT | | | | | 2 hours before or 6 hours after | | | | | | | antacids, dairy, calcium, iron, | | | | | | | or zinc., Pre-op, Indications: | | | | | | | Surgical Prophylaxis | | | | | | + +-------+ +--------+---+---+ + +---+ | | | + +---+ | dextrose 50% injection 12.5-25 | | | g 12.5-25 g, Intravenous, EVERY | | | 15 MIN PRN, Low Blood Sugar, Give | | | 12.5g (25 mL) IV if blood | | | glucose 50-69 mg/dL. Give 25g | | | (50 mL) IV if blood glucose < 50, | | | Starting [facility] 07/14/19 at 0703, | | | Repeat in 15 min if blood glucose | | | remains < 70 mg/dL. Repeat | | | blood glucose in 30 min once | | | blood glucose > 70., Pre-op | | + +---+ | | | + +---+ | dextrose 50% injection 12.5-25 | | | g 12.5-25 g, Intravenous, EVERY | | | 15 MIN PRN, Low Blood Sugar, For | | | hypoglycemia. Give 12.5g (25ml) | | | IV if blood glucose 50-69 | | | mg/dL. Give 25g (50ml) IV if | | | blood glucose < 50, Starting [facility] | | | 07/14/19 at 0851, Give over 2 min. | | | Repeat in 15 min if blood | | | glucose remains < 70 mg/dL. | | | Repeat blood glucose in 30 min | | | once blood glucose > 70., | | | Recovery/Phase I | | + +---+ | | | + +---+ | ePHEDrine (AKOVAZ) 50 mg/mL | | | injection 5 mg 5 mg, | | | Intravenous, EVERY 5 MIN PRN, if | | | SBP <90., Starting [facility] 07/14/19 at | | | 0851, Hold if HR > 100. Maximum | | | total dose 20mg., Recovery/Phase | | | I | | + +---+ | | | + +---+ + +-------+ +--------+---+---+ | fentaNYL (PF) injection 25-50 | Given | 07/14/20 | 25 mcg | | | | mcg 25-50 mcg, Intravenous, | | 19 10:22 | | | | | EVERY 5 MIN PRN, Pain, Initial | | PDT | | | | | postop urgent pain or escalating | | | | | | | pain, Starting [facility] 07/14/19 at | | | | | | | 0851, For 4 doses, Every 5 | | | | | | | minutes PRN for initial postop | | | | | | | urgent pain or escalating pain up | | | | | | | to 2 doses maximum. If patient | | | | | | | meets opioid tolerant definition, | | | | | | | can give up to 4 doses maximum. | | | | | | | First dose must be lowest dose. | | | | | | | Use Pasero Sedation Scale. | | | | | | | [Opioid tolerant = One week or | | | | | | | longer, jvdepz-isx-fzsdy use of | | | | | | | at least the following DAILY | | | | | | | dose: 60mg oral morphine, 60mg | | | | | | | oral hydrocodone, 30mg oral | | | | | | | oxycodone, 8mg oral | | | | | | | hydromorphone, fentanyl patch | | | | | | | 25mcg/hr, or equivalent dose of | | | | | | | another opioid], Recovery/Phase I | | | | | | + +-------+ +--------+---+---+ +-------+ +--------+---+---+ | Given | 07/14/20 | 25 mcg | | | | | 19 9:48 | | | | | | PDT | | | | +-------+ +--------+---+---+ | Given | 07/14/20 | 50 mcg | | | | | 19 9:18 | | | | | | PDT | | | | +-------+ +--------+---+---+ +---+---+ | | | +---+---+ + +-------+ +--------+---+---+ | gabapentin (NEURONTIN) capsule | Given | 07/14/20 | 600 mg | | | | 600 mg 600 mg, Oral, ONCE, [facility] | | 19 7:24 | | | | | 07/14/19 at 0730, For 1 dose, | | PDT | | | | | Pre-op | | | | | | + +-------+ +--------+---+---+ + +---+ | | | + +---+ | glycopyrrolate (ROBINUL) | | | injection 0.2 mg 0.2 mg, | | | Intravenous, PRN, Bradycardia, | | | For HR <50, Starting [facility] 07/14/19 | | | at 0851, For 2 doses, May repeat | | | one time after 1min, | | | Recovery/Phase I | | + +---+ | | | + +---+ | hydrALAZINE (APRESOLINE) | | | injection 5 mg 5 mg, | | | Intravenous, EVERY 20 MINUTES | | | PRN, For SBP > 180, DBP > 100, | | | Starting [facility] 07/14/19 at 0851, Hold | | | if HR > 100. Maximum total dose | | | 40 mg. Use labetalol first if | | | available., Recovery/Phase I | | + +---+ | | | + +---+ | HYDROmorphone (DILAUDID) | | | injection 0.2-0.6 mg 0.2-0.6 mg, | | | Intravenous, EVERY 5 MIN PRN, | | | Pain, Starting [facility] 07/14/19 at | | | 0851, First dose must be lowest | | | dose, can increase subsequent | | | doses by 0.2mg within dosing | | | range. If patient meets opioid | | | tolerant definition, can start | | | with 0.4mg dose. [Maximum total | | | PACU dose 4mg] Use Pasero | | | Sedation Scale. [Opioid tolerant | | | = One week or longer, | | | wthjhx-xwf-atzjx use of at least | | | the following DAILY dose: 60mg | | | oral morphine, 60mg oral | | | hydrocodone, 30mg oral oxycodone, | | | 8mg oral hydromorphone, fentanyl | | | patch 25mcg/hr, or equivalent | | | dose of another opioid], | | | Recovery/Phase I | | + +---+ | | | + +---+ | HYDROmorphone (DILAUDID) | | | injection 0.25-1 mg 0.25-1 mg, | | | Intravenous, EVERY 2 HOURS PRN, | | | Pain, Starting [facility] 07/14/19 at | | | 1044, If oral route not an | | | option. Slow IV push, not faster | | | than 0.3mg/minute. First dose | | | must be lowest dose, titrate to | | | effective dose by repeat of | | | lowest dose every 30 minutes prn | | | pain, may not exceed maximum dose | | | ordered per interval. Use Pasero | | | Sedation Scale., Post-op/Phase | | | II | | + +---+ | | | + +---+ | ibuprofen (ADVIL, MOTRIN) | | | tablet 400 mg 400 mg, Oral, | | | EVERY 8 HOURS (3 times per day), | | | First dose on [facility] 07/14/19 at 1700, | | | If urine output is less than | | | 240ml/8 hours (30ml/hr) or if | | | signs of bleeding, contact MD and | | | hold. Administer with food or | | | snack, Post-op/Phase II | | + +---+ | | | + +---+ + +-------+ +-------+---+---+ | ketorolac (TORADOL) injection | Given | 07/14/20 | 15 mg | | | | 15 mg 15 mg, Intravenous, ONCE, | | 19 11:33 | | | | | [facility] 07/14/19 at 1100, For 1 dose, | | PDT | | | | | If urine output is less than | | | | | | | 240ml/8 hours (30ml/hr) or if | | | | | | | signs of bleeding, contact MD and | | | | | | | hold., Post-op/Phase II | | | | | | + +-------+ +-------+---+---+ + +---+ | | | + +---+ | labetalol (TRANDATE) 5 mg/mL | | | injection 5 mg 5 mg, | | | Intravenous, EVERY 5 MIN PRN, For | | | SBP > 180, DBP > 100, Starting | | | [facility] 07/14/19 at 0851, Hold if HR < | | | 60. Maximum total dose 300mg. | | | Notify anesthesia if patient | | | requires more than 50mg., | | | Recovery/Phase I | | + +---+ | | | + +---+ + + + +---+---+---+ | lactated ringers (LR) infusion | Continue | 07/14/20 | | | | | at 10-100 mL/hr, Intravenous, | d by | 19 9:10 | | | | | CONTINUOUS, Starting Sherice 9/5/19 | Anesthes | PDT | | | | | at 0730, TKO., Pre-op | ia | | | | | + + + +---+---+---+ +---------+ +--------+-------+---+ | New Bag | 07/14/20 | 1,000 | 100 | | | | 19 7:25 | mLs | mL/hr | | | | PDT | | | | +---------+ +--------+-------+---+ + +---+ | | | + +---+ | meperidine (DEMEROL) injection | | | 12.5-25 mg 12.5-25 mg, | | | Intravenous, PRN, Shivering, | | | Starting [facility] 07/14/19 at 0851, For | | | 2 doses, May Repeat once in 5 | | | min., Recovery/Phase I | | + +---+ | | | + +---+ | metoclopramide (REGLAN) 5 mg/mL | | | injection 10 mg 10 mg, | | | Intravenous, EVERY 6 HOURS PRN, | | | Nausea, Vomiting, Starting Sherice | | | 07/14/19 at 0851, Protect from | | | light., Recovery/Phase I | | + +---+ | | | + +---+ | oxybutynin (DITROPAN) tablet 5 | | | mg 5 mg, Oral, EVERY 8 HOURS | | | PRN, Bladder Spasms, Starting Sherice | | | 07/14/19 at 1044, Hold all | | | antispasmodics after 0200 hours., | | | Post-op/Phase II | | + +---+ | | | + +---+ + +-------+ +-------+---+---+ | oxyCODONE (ROXICODONE) tablet | Given | 07/14/20 | 10 mg | | | | 5-20 mg 5-20 mg, Oral, EVERY 3 | | 19 11:33 | | | | | HOURS PRN, Pain, Starting Sherice | | PDT | | | | | 07/14/19 at 1044, First dose must | | | | | | | be the lowest dose, can titrate | | | | | | | to effective dose by repeat of | | | | | | | lowest dose every 60 minutes prn | | | | | | | pain, may not exceed maximum dose | | | | | | | ordered per interval. Use Pasero | | | | | | | Sedation Scale., Post-op/Phase | | | | | | | II | | | | | | + +-------+ +-------+---+---+ +---+---+ | | | +---+---+ + +-------+ +--------+---+---+ | phenazopyridine (PYRIDIUM) | Given | 07/14/20 | 200 mg | | | | tablet 200 mg 200 mg, Oral, 3 | | 19 11:33 | | | | | TIMES DAILY PRN, Urinary | | PDT | | | | | Symptoms, urinary burning., | | | | | | | Starting [facility] 07/14/19 at 1044, | | | | | | | Administer with meals., | | | | | | | Post-op/Phase II | | | | | | + +-------+ +--------+---+---+ + +---+ | | | + +---+ | scopolamine (TRANSDERM-SCOP) 1 | | | mg/3 days 1 patch 1 patch, | | | Transdermal, PRN, adult patients | | | with history of PONV, Starting | | | Sherice 07/14/19 at 0703, PRN for adult | | | patients <65 yo with history of | | | PONV. Hold for patients with | | | glaucoma, dementia, altered | | | mental status, or history of | | | allergy to Scopolamine. Apply to | | | mastoid process Each patch is | | | designed to deliver 1 mg over 3 | | | days. DO NOT CUT patch., Pre-op | | + +---+ | | | + +---+ | sodium chloride 0.9% (NS) | | | infusion at 10-100 mL/hr, | | | Intravenous, CONTINUOUS, Starting | | | Sherice 07/14/19 at 0730, TKO. Use | | | this instead of LR if patient is | | | on dialysis., Pre-op | | + +---+ | | | + +---+ | tamsulosin (FLOMAX) capsule 0.4 | | | mg 0.4 mg, Oral, DAILY AFTER | | | BREAKFAST, First dose on Sherice | | | 07/14/19 at 1100, Do not crush or | | | chew capsule. If unable to | | | swallow, may open capsule and | | | sprinkle over acidic soft food | | | (applesauce, yogurt) or in a | | | small quantity of acidic fruit | | | juice (orange, grape). Administer | | | immediately (do not allow | | | granules to dissolve). Do not | | | administer via tube routes., | | | Post-op/Phase II | | + +---+ | | | + +---+ documented in this encounter
--- OUTSIDE RECORDS SUMMARY | ~2019-08-18 | XMS | Encounter Summary ---
Demographics + + + | Address | [address] | | | [place] [address] | + + + | Home Phone | | + + + | Preferred Language | Unknown | + + + | Marital Status | | + + + | Scientology Affiliation | 1013 | + + + | Race | Unknown | + + + | Ethnic Group | Unknown | + + + Author + + + | Author | [facility] | | | and [place] | + + + | Organization | [facility] | | | and [place] | + + + | Address | Unknown | + + + | Phone | Unavailable | + + + Support + + + + + | Name | Relationship | Address | Phone | + + + + + | Monica Hsu | RONEN | [place], | | | | | [place] [address] | | + + + + + Care Team Providers + +------+ + | Care Receiving And Processing Supervisor Name | Role | Phone | + [...] | Services | Therapy | Primary | Carr | [facility] | | | Required | | osteoarthrit | Roman Catholic, | PHYSICAL | | | | | is of right | [address] | | | | | shoulder | [address] | [place] | | | | | Impingement | [place], | [place], [place] | | | | | syndrome of | [place] | [address] | | | | | left | [address] | Phone: | | | | | shoulder | Phone: | [phone] | | | | | Impingement | [phone] | Fax: | | | | | syndrome of | Fax: | [phone] | | | | | right | [phone] | | | | | | shoulder [...] | | | [place], [place] | [place] | | | | | | [address] | [address] | | | | | | Phone: | Phone: | | | | | | [phone] | [phone] | | | | | | Fax: | Fax: | | | | | | [phone] | [phone] | + +--------+ + + + + Encounter Details +--------+---------+ + + + | Date | Type | Department | Care Team | Description | +--------+---------+ + + + | 08/11/ | Office | [facility] | Oliver Flowers | Primary | | 2019 | Visit | ORTHOPEDIC SURGERY | MD [address] | osteoarthritis of | | | | [address] [facility] | [address] | right shoulder | | | | [place], [place] | [place] [address] | (Primary Dx); | | | | [address] | [phone] | Impingement syndrome | | | | [phone] | | of left shoulder; | | [...] might be differe nt from the original. [facility] HISTORY AND PHYSICAL EXAMINATION Pt. Name/Age/: Fawad [...] PLACEMENT; Surgeo n: Alvin Odom MD; Location: [facility] MAIN OR VASECTOMY Allergies: No Known [...] made to ensure accuracy; however, inadvertent computerized warehouse order puller errors may be pre sent. I appreciate the opportunity to help with the management of this patient. Olivre Flowers MD documented in this encounter Plan [...] | | | | | | [address] | | | | | | [place] [address] | | | | | | [phone] | | | | | | | | +--------+---------+ + + + + +--------+ + + | Name | Priori | Associated Diagnoses | Order Schedule | | | ty | | | + +--------+ + + | [facility] Physical | Routin | Primary [...] PDT | | | | | ONCE, [facility] 08/11/19 at 1745, For 1 | [...] PDT | | | | | ONCE, [facility] 08/11/19 at 1745, For 1 | | | | | | | dose, Fabrizio well. Not for IV | | | | | | | use., | | | | | | + +-------+ +-------+---+ + +---+---+ | | | +---+---+ documented in this encounter
--- OUTSIDE RECORDS SUMMARY | ~2019-08-18 | XMS | Encounter Summary ---
Demographics + + + | Address | [address] | | | [place] [address] | + + + | Home Phone | | + + + | Preferred Language | Unknown | + + + | Marital Status | | + + + | Zoroastrian Affiliation | 1013 | + + + | Race | Unknown | + + + | Ethnic Group | Unknown | + + + Author + + + | Author | [facility] | | | and [place] | + + + | Organization | [facility] | | | and [place] | + + + | Address | Unknown | + + + | Phone | Unavailable | + + + Support + + + + + | Name | Relationship | Address | Phone | + + + + + | Monica Hsu | RONEN | [place], | | | | | [place] [address] | | + + + + + Care Team Providers + +------+ + | Care Recording Studio Set Up Worker Name | Role | Phone | + [...] | | | | Diagnoses | | Lei, | | | | | Kidney | | Alvin Pierce, | | | | | anneliese sahu | | MD [address] | | | | | left side | | [address] [place] | | | | | Gross | | [place], [place] | | | | | hematuria | | [address] Phone: | | | | | Procedures | | [phone] | | | | | SD | | Fax: | | | | | CYSTO/URETER | | [phone] | | | | | O | [...] + + + + | 07/14/ | Anesthesia | [facility] | Jai Santoyo | | | 2019 | Event | [facility]TRA OP | MD Kaveh [address] | | | | [address] | [address] [place] | | | | | [place], [place] | [place] [address] | | | | | [address] | | | | | | [phone] | | | +--------+ + + + + Anesthesia Record + + + + + | Procedure Name | Responsible | Anesthesia Start | Anesthesia Stop Time | | | Anesthesiologist | Time | | + + + + + | CYSTOSCOPY Left | Jai Santoyo, | 07/14/19 09 | 07/14/19 1042 | | URETEROSCOPY W/ | MD | | | | LASER lithotriopsy | | | | | and stent PLACEMENT | | | | | (Left Ureter) | | | | + + + + + +----+---+ + + | Da | T | Event | Comment | | te | i | | | | | m | | | | | e | | | +----+---+ + + | 09 | 0 | | | | /0 | 9 | | | | 5/ | 1 | | | | 20 | 0 | | | | 19 | | | | +----+---+ + + | | 0 | An Checkout | Pre-use anesthesia machine/equipment checkout. | | | 9 | | | | | 1 | | | | | 0 | | | +----+---+ + + | | 0 | An Start | Reassessment prior to anesthesia induction/procedure. | | | 9 | | | | | 1 | | | | | 0 | | | +----+---+ + + | | 0 | Preoxygenat | | | | 9 | ed | | | | 1 | | | | | 6 | | | +----+---+ + + | | 0 | Antibiotic | PO cipro in pre-op | | | 9 | Given | | | | 1 | | | | | 8 | | | +----+---+ + + | | 0 | An | | | | 9 | Induction | | | | 1 | | | | | 8 | | | +----+---+ + + | | 0 | An | | | | 9 | Intubation | | | | 1 | | | | | 9 | | | +----+---+ + + | | 0 | [place] | | | | 9 | 43-degrees | | | | 2 | | | | | 8 | | | +----+---+ + + | | 0 | Pre-Procedu | | | | 9 | ral Timeout | | | | 3 | Completed | | | | 0 | | | +----+---+ + + | | 0 | First | | | | 9 | Inc/Proc St | | | | 3 | | | | | 1 | | | +----+---+ + + | | 1 | [place] off | | | | 0 | | | | | 2 | | | | | 7 | | | +----+---+ + + | | 1 | Breathing | | | | 0 | Spontaneous | | | | 2 | ly | | | | 7 | | | +----+---+ + + | | 1 | an stop | | | | 0 | data | | | | 3 | | | | | 7 | | | +----+---+ + + | | 1 | Quick Note | Spont vent, good RR and Vt. To PACU with LMA. | | | 0 | | | | | 3 | | | | | 7 | | | +----+---+ + + | | 1 | An Stop | Patient handed off to recovery nurse. | | | 4 | | | | | 2 | | | +----+---+ + + +------+ | Meds | +------+ + + + | Name | Total | + + + | midazolam | 2 mg | + + + | propofol (DIPRIVAN) injection | 150 mg | | (bolus) (20 mL) | | + + + | propofol | 279.18 mg | + + + | lidocaine 2% | 75 mg | + + + | dexamethasone | 10 mg | + + + | ondansetron (ZOFRAN) injection 4 | 4 mg | | mg | | + + + | fentaNYL (PF) injection 25-50 mcg | 100 mcg | + + + | lactated ringers (LR) infusion | 400 mL | + + + + + | Name | + + | N2O Flow Rate (L/Min) | + + | O2 Flow Rate (L/Min) | + + | Insp O2 | + + | Exp SEV | + + | Air Flow Rate (L/Min) | + + + + | No blood administrations on file. | + + +--------+ + + + | Type | Details | Placement | Removal | +--------+ + + + | Periph | 07/14/19; 736; Right; Forearm; | 07/14/19736 by | 07/14/19 1238 by | | eral | [id number] catheter system; | Lorena Trevino RN | Lisette Moreno, | | IV | 18 gauge; Chemistry, Coagulation; | | RN | | | 0; distraction, intradermal | | | | | injection, tolerated well; | | | | | 07/14/19; 1238 | | | +--------+ + + + | Airway | Placement Date: 07/14/19; | 07/14/19918 by Tor | 07/14/19 104 by | | | Placement Time: 918 (created via | Kaveh Santoyo MD | Nick Gaming RN | | | procedure documentation); Mask | | | | | Ventilation: EZ; Attempts: 1; | | | | | Airway Type: laryngeal mask; | | | | | Size: 4; Trauma: none; Placement | | | | | Check: exhaled CO2 detection | | | | | device; Removal: per protocol; | | | | | Removal Date: 07/14/19; Removal | | | | | Time: 1048 | | | +--------+ + + + documented in this encounter Social History + + + +--------+------+ | [...] [place] | | | | | | [address] | | | | | | | | +--------+---------+ + + + | 10/11/ | Office | Orthopedic Surgery | Oliver Flowers | | | 2018 | Visit | | MD Shayy Guzman | | | | | | [address] | | | | | | [place] [address] | | | | | | [phone] | | | | | | | | +--------+---------+ + + + documented as of this encounter Results Anesthesia Airway Note (07/14/2019 10:02 PDT) + + + | Narrative | Performed At | + + + | Jai Santoyo MD 07/14/2019 10:02 Anesthesia Airway | | | Placement 07/14/2019 9:19 Preprocedure check: patient identified, | | | oxygen, airway assessed, patient reassessment prior to induction, | | | airway equipment checked and suction Rapid Sequence Induction: no | | | Mask ventilation: easy Attempts: 1 Airway type: laryngeal mask | | | Size: 4 Route, reference point: center of mouth Tube secured with: | | | adhesive tape Trauma: none Tube placement verification: carbon | | | dioxide detection Performing provider: Jai Santoyo MD | | | Please see intraoperative grid for any additional medication | | | documentation. | | + + + + + | Procedure Note | + + | Jai Santoyo MD - 07/14/2019 1002 PDT Anesthesia Airway Placement07/14/2019 | | 9:19Preprocedure check: patient identified, oxygen, airway assessed, patient | | reassessment prior to induction, airway equipment checked and suctionRapid Sequence | | Induction: noMask ventilation: easyAttempts: 1Airway type: laryngeal maskSize: 4Route, | | reference point: center of mouthTube secured with: adhesive tapeTrauma: noneTube | | placement verification: carbon dioxide detectionPerforming provider: Jai Santoyo | | MDPlease see intraoperative grid for any additional medication documentation. | |Airway type: laryngeal mask | |Size: 4 | |Route, reference point: center of mouth | |Tube secured with: adhesive tape | |Trauma: none | |Tube placement verification: carbon dioxide detection | |Performing provider: Jai Santoyo MD | | | | | | | |Please see intraoperative grid for any additional medication documentation. | + + documented in this encounter Visit Diagnoses Not on filedocumented in this encounter Administered Medications + +--------+ +-------+------+------+ | Medication Order | MAR | Action | Dose | Rate | Site | | | Action | Date | | | | + +--------+ +-------+------+------+ | dexamethasone (PF) 10 mg/mL | Given | 07/14/20 | 10 mg | | | | injection Intravenous, PRN, | | 19 9:23 | | | | | Starting Sherice 07/14/19 at 0923, | | PDT | | | | | Anesthesia Intra-op | | | | | | + +--------+ +-------+------+------+ +---+---+ | | | +---+---+ + +-------+ +--------+---+---+ | fentaNYL (PF) injection [...] | | | | | | longer, fsekth-wdw-mfinv use of | | | | | [...] +--------+---+---+ +---+---+ | | | +---+---+ + + + +---+---+---+ | lactated ringers (LR) infusion | Continue | 07/14/20 | | | | | at 10-100 mL/hr, Intravenous, | d by | 19 9:10 | | | | | CONTINUOUS, Starting [facility] 07/14/19 | Anesthes | PDT | | | | | at 0730, TKO., Pre-op | ia | | | | | + + + +---+---+---+ +---------+ +--------+-------+---+ | New Bag | 07/14/20 | 1,000 | 100 | | | | 19 7:25 | mLs | mL/hr | | | | PDT | | | | +---------+ +--------+-------+---+ +---+---+ | | | +---+---+ + +-------+ +-------+---+---+ | lidocaine (PF) 2% injection | Given | 07/14/20 | 75 mg | | | | Intravenous, PRN, Starting Sherice | | 19 9:18 | | | | | 07/14/19 at 0918, Anesthesia | | PDT | | | | | Intra-op | | | | | | + +-------+ +-------+---+---+ +---+---+ | | | +---+---+ + +-------+ +------+---+---+ | midazolam (VERSED) 1 mg/mL | Given | 07/14/20 | 2 mg | | | | injection Intravenous, PRN, | | 19 9:10 | | | | | Starting Sherice 07/14/19 at 0910, | | PDT | | | | | Anesthesia Intra-op | | | | | | + +-------+ +------+---+---+ +---+---+ | | | +---+---+ + +-------+ +------+---+---+ | ondansetron (ZOFRAN) injection | Given | 07/14/20 | 4 mg | | | | 4 mg 4 mg, Intravenous, ONCE | | 19 9:23 | | | | | PRN, Nausea, Starting Sherice 07/14/19 | | PDT | | | | | at 0851, For 1 dose, | | | | | | | Recovery/Phase I | | | | | | + +-------+ +------+---+---+ +---+---+ | | | +---+---+ + +-------+ +--------+---+---+ | propofol (DIPRIVAN) injection | Given | 07/14/20 | 150 mg | | | | Intravenous, PRN, Starting Sherice | | 19 9:18 | | | | | 07/14/19 at 0918, Anesthesia | | PDT | | | | | Intra-op | | | | | | + +-------+ +--------+---+---+ +---+---+ | | | +---+---+ + +---------+ + +-------+---+ | propofol (DIPRIVAN) injection | New Bag | 07/14/20 | 50 | 25.8 | | | Intravenous, CONTINUOUS PRN, | | 19 9:23 | mcg/kg/m | mL/hr | | | Starting Sherice 07/14/19 at 0923, | | PDT | in | | | | Anesthesia Intra-op | | | | | | + +---------+ + +-------+---+ +---+---+ | | | +---+---+ documented in this encounter"
--- OUTSIDE RECORDS SUMMARY | ~2019-08-18 | XMS | Encounter Summary ---
Demographics + + + | Address | [address] | | | [place] [address] | + + + | Home Phone | | + + + | Preferred Language | Unknown | + + + | Marital Status | | + + + | Anglican Affiliation | 1013 | + + + | Race | Unknown | + + + | Ethnic Group | Unknown | + + + Author + + + | Author | [facility] | | | and [place] | + + + | Organization | [facility] | | | and [place] | + + + | Address | Unknown | + + + | Phone | Unavailable | + + + Support + + + + + | Name | Relationship | Address | Phone | + + + + + | Monica Hsu | RONEN | [place], | | | | | [place] [address] | | + + + + + Care Team Providers + +------+ + | Care Forex Trader Name | Role | Phone | + +------+ + | Tariq Byers PA-C | PCP | | + +------+ + Reason for Visit + + + | Reason | Comments | + + + | Surgery Appointment | | + + + | Radiology | | | Appointment | | + + + Encounter Details +--------+ + + + + | Date | Type | Department | Care Team | Description | +--------+ + + + + | 06/23/ | Telephone | [facility] | Alvin Odom | Surgery Appointment; | | 2018 | | [address] | MD [address]ari [address] | Radiology | | | | [place], [place] | [place], [place] | Appointment | | | | [address] | [address] | | | | | [phone] | | | +--------+ + + + [...] [place] | | | | | | [id number] | | | | | | | | +--------+---------+ + + + | 10/11/ | Office | Orthopedic Surgery | Oliver Flowers | | | 2018 | Visit | | MD [address] | | | | | | [address] | | | | | | [place] [address] | | | | | | [phone] | | | | | | | | +--------+---------+ + + + documented as of this encounter Visit Diagnoses Not on filedocumented in this encounter"
--- OUTSIDE RECORDS SUMMARY | ~2019-08-18 | XMS | Encounter Summary ---
Demographics + + + | Address | [address] | | | [place] [address] | + + + | Home Phone | | + + + | Preferred Language | Unknown | + + + | Marital Status | | + + + | Oriental Orthodox Affiliation | 1013 | + + + | Race | Unknown | + + + | Ethnic Group | Unknown | + + + Author + + + | Author | [facility] | | | and [place] | + + + | Organization | [facility] | | | and [place] | + + + | Address | Unknown | + + + | Phone | Unavailable | + + + Support + + + + + | Name | Relationship | Address | Phone | + + + + + | Monica Hsu | RNOEN | [place], | | | | | [place] [address] | | + + + + + Care Team Providers + +------+ + | Care Receiving Clerk Name | Role | Phone | + +------+ + | Tariq Byers PA-C | PCP | | + +------+ + Encounter Details +--------+ + + + + | Date | Type | Department | Care Team | Description | +--------+ + + + + | 08/11/ | [facility] | [facility] | Oliver Flowers | Bilateral shoulder | | 2019 | Encounter | MED [facility] [address] | MD [address] | pain, unspecified | | | | [address] [place] | [address] [place] | chronicity | | | | [place], [place] | [place] [address] | | | | | [address] | [phone] | | | | | [phone] | | | +--------+ + + + [...] + + documented as of this encounter Medications at Time of Discharge + + + +---------+ + + | Medication | Sig | Dispensed | Refills | Start | End Date | | | | | | Date | | + + + +---------+ + + | | Take 1-2 tablets by | 10 | 0 | 07/26/20 | | | HYDROcodone-acetamin | mouth every 4 hours | tablet | | 19 | | | ophen (NORCO) 5-325 | as [...] + + + +---------+ + + | varenicline | Take 0.5 mg one | | 0 | 08/01/20 | | | (CHANTIX ADRIANNA) 0.5 MG | daily on days 1-3 | | | 19 | 9 | | X 11 & 1 MG X 42 | and 0.5 mg twice | | | | | | tablet | daily on days 4-7. | | | | | | | Then 1 mg twice | | | | | | | daily for a total of | | | | | | | 12 weeks. | | | | | + + [...] Surgery | Oliver Flowers | | | 2019 | Visit | | MD [address] | | | | | | [address] | | | | | | [place] [address] | | | | | | [phone] | | | | | | | | +--------+---------+ + + + documented as of this encounter Procedures + +--------+ + + + | Procedure Name | Priori | Date/Time | Associated Diagnosis | Comments | | | ty | | | | + +--------+ + + + | XR SHOULDER LEFT 1 | Routin | 08/11/2019 | Bilateral shoulder | Results for this | | VW | e | 16:09 PDT | pain, unspecified | procedure are in the | | | | | chronicity | results section. | + +--------+ + + + documented in this encounter Results XR Shoulder Left 1 Vw (08/11/2019 16:09 [...] Procedure Note | + + | Mike, Rad Results In - 08/11/2019 1734 PDT EXAM:XR [...] + | Diagnosis | + + | Bilateral shoulder pain, unspecified chronicity | + + documented in this encounter"
--- OUTSIDE RECORDS SUMMARY | ~2019-08-18 | XMS | Encounter Summary ---
Demographics + + + | Address | [address] | | | [place] [address] | + + + | Home Phone | | + + + | Preferred Language | Unknown | + + + | Marital Status | | + + + | Mormon Affiliation | 1013 | + + + | Race | Unknown | + + + | Ethnic Group | Unknown | + + + Author + + + | Author | [facility] | | | and [place] | + + + | Organization | [facility] | | | and [place] | + + + | Address | Unknown | + + + | Phone | Unavailable | + + + Support + + + + + | Name | Relationship | Address | Phone | + + + + + | Monica Hsu | RONEN | [place], | | | | | [place] [address] | | + + + + + Care Team Providers + +------+ + | Care Teaseler Name | Role | Phone | + +------+ + | Tariq Byers PA-C | PCP | | + +------+ + Reason for Visit + + + | Reason | Comments | + + + | Urology Appointment | | + + + Encounter Details +--------+ + + + + | Date | Type | Department | Care Team | Description | +--------+ + + + + | 07/27/ | Telephone | [facility] | Alvin Odom | Urology Appointment | | 2019 | | [address] | MD [address] | | | | | [place], [place] | [place], [place] | | | | | [address] | [address] | | | | | [phone] | | | +--------+ + + + [...] Urology | Alvin Odom | | | 2019 | Visit | | MD [address] | | | | | | [place] | | | | | | [address] | | | | | | | | +--------+---------+ + + + | 10/11/ | Office | Orthopedic Surgery | Oliver Flowers | | | 2019 | Visit | | MD [address] | | | | | | [address] | | | | | | [place] [address] | | | | | | [phone] | | | | | | | | +--------+---------+ + + + documented as of this encounter Visit Diagnoses Not on filedocumented in this encounter"
--- OUTSIDE RECORDS SUMMARY | ~2019-08-18 | XMS | Encounter Summary ---
Demographics + + + | Address | [address] | | | [place] [address] | + + + | Home Phone | | + + + | Preferred Language | Unknown | + + + | Marital Status | | + + + | Confucianist Affiliation | 1013 | + + + | Race | Unknown | + + + | Ethnic Group | Unknown | + + + Author + + + | Author | [facility] | | | [facility] [place] | + + + | Organization | [facility] | | | and [place] | + + + | Address | Unknown | + + + | Phone | Unavailable | + + + Support + + + + + | Name | Relationship | Address | Phone | + + + + + | Monica Hsu | RONEN | [place], | | | | | [place] [address] | | + + + + + Care Team Providers + +------+ + | [facility] Name | Role | Phone | + [...] | | | | hematuria | | [id number] Phone: | | | | | Procedures | | [phone] | | | | | [place] | | Fax: | | | | | CYSTO/URETER | | [phone] | | | | | [place] | [...] | | | | | [address] | [address] | | | | | [place], [place] | [place] [address] | | | | | [address] | | | | | | [phone] | | | +--------+ + + + [...] +----+---+ + + | | 0 | [place] | | | | 9 | 43-degrees [...] +----+---+ + + | | 1 | [place] off | | | | 0 | [...] 07/14/19 1238 by | | eral | toix-yng-wbeknu catheter system; | Lorena Trevino RN | [...] [place] | | | | | | [id number] | | | | | | | | +--------+---------+ + + + | 10/11/ | Office | Orthopedic Surgery | [facility] | | | 2018 | Visit | | MD Shayy Guzman | | | | | | [place] | | | | | | [place] [address] | | | | | | [phone] | | | | | | | [...] | | | | | | longer, elqwcr-nxe-ypprb use of | | | | | [...] | | | | | CONTINUOUS, Starting [facility] 07/14/19 | Anesthes | PDT | [...]
--- OUTSIDE RECORDS SUMMARY | ~2019-08-18 | XMS | Clinical Summary ---
Demographics + + + | Address | [address] | | | [place] [address] | + + + | Home Phone | | + + + | Preferred Language | Unknown | + + + | Marital Status | | + + + | Presybeterian Affiliation | 1013 | + + + | Race | Unknown | + + + | Ethnic Group | Unknown | + + + Author + + + | Author | [facility] | | | and [place] | + + + | Organization | [facility] | | | and [place] | + + + | Address | Unknown | + + + | Phone | Unavailable | + + + Support + + + + + | Name | Relationship | Address | Phone | + + + + + | Monica Hsu | RONEN | [place], | | | | | [place] [address] | | + + + + + Care Team Providers + +------+ + | Care Daily Sales Audit Clerk Name | Role | Phone | + +------+ + | Tariq Byers PA-C | PCP | | + +------+ + Allergies No Known Allergies Medications + + + +---------+------+------+-------+ | Medication | Sig | Dispensed | Refills | Star | End | Statu | | | | | | t | Date | s | | | | | | Date | | | + + + +---------+------+------+-------+ | meloxicam (MOBIC) | take 1 tablet by | | 0 | 07/2 | | Activ | | 15 mg tablet | mouth once daily | | | 12/29 | | e | | | | | | 19 | | | + + + +---------+------+------+-------+ | | Take 1-2 tablets by | 10 | 0 | 09/ | | Activ | | HYDROcodone-acetamin | mouth every 4 hours | tablet | | 05/28 | | e | | ophen (NORCO) 5-325 | as needed for Pain. | | | 19 | | | | mg per tablet | | | | | | | + + + +---------+------+------+-------+ | varenicline | Take 0.5 mg one | | 0 | 09/2 | 12/2 | Activ | | (CHANTIX ADRIANNA) 0.5 MG | daily on days 1-3 | | | 3/20 | 2/20 | e | | X 11 & 1 MG X 42 | and 0.5 mg twice | | | 19 | 19 | | | tablet | daily on days 4-7. | | | | | | | | Then 1 mg twice | | | | | | | | daily for a total of | | | | | | | | 12 weeks. | | | | | | + + + +---------+------+------+-------+ | tamsulosin | Take 1 capsule by | | 0 | 12/2 | 09/1 | Disco | | (FLOMAX) 0.4 mg CAPS | mouth daily (after | | | 4/20 | 7/20 | ntinu | | | dinner). For 7 days | | | 18 | 19 | ed | + + + +---------+------+------+-------+ | | TAKE 1 TABLET BY | | 0 | 08/2 | 09/1 | Disco | | HYDROcodone-acetamin | MOUTH EVERY 6 HOURS | | | 1/20 | 7/20 | ntinu | | ophen (NORCO) 5-325 | NEEDED FOR | | | 19 | 19 | ed | | mg per tablet | MODERATE TO SEVERE | | | | | | | | PAIN DO NOT EXCEED 4 | | | | | | | | TABLETS IN 24 HOURS | | | | | | + + + +---------+------+------+-------+ | | Take 1-2 tablets by | 30 | 0 | 09/0 | 09/1 | Disco | | HYDROcodone-acetamin | mouth every 4 hours | tablet | | 5/20 | 7/20 | ntinu | | ophen (NORCO) 5-325 | as needed for Pain. | | | 19 | 19 | ed | | mg per tablet | | | | | | | + + + +---------+------+------+-------+ | tamsulosin | Take 1 capsule by | 30 | 0 | 09/0 | 10/0 | Expir | | (FLOMAX) 0.4 mg CAPS | mouth nightly for 30 | capsule | | 5/20 | 5/20 | ed | | | days. | | | 19 | 19 | | + + + +---------+------+------+-------+ + + +-------+ +------+------+-------+ | Hospital, Clinic, or | Ordered | Route | Frequency | Star | End | Statu | | Other Facility | Dose | | | t | Date | s | | Administered | | | | Date | | | | Medication | | | | | | | + + +-------+ +------+------+-------+ | triamcinolone | 40 mg | IX | ONCE | 10/0 | 10/0 | Ended | | acetonide | | | | 3/20 | 3/20 | | | (KENALOG-40) 40 | | | | 19 | 19 | | | mg/mL injection 40 | | | | | | | | mg | | | | | | | + + +-------+ +------+------+-------+ | triamcinolone | 40 mg | IX | ONCE | | 0 | Ended | | acetonide | | | | 3/20 | 3/20 | | | (KENALOG-40) 40 | | | | 19 | 19 | | | mg/mL injection 40 | | | | | | | | mg | | | | | | | + + +-------+ +------+------+-------+ Active Problems + + + | Problem | Noted Date | + + + | Impingement syndrome of left shoulder | 08/11/2019 | + + + | Impingement syndrome of right shoulder | 08/11/2019 | + + + | Kidney stone on left side | 07/04/2019 | + + + + + | Overview: Added automatically from request for surgery | | [id number] | + + + + + | Gross hematuria | 07/04/2019 | + + + | Bilateral shoulder pain | 01/03/2019 | + + + + + | Overview: Overview: Referral to Orthopedic surgery | | 01/10/2019X-ray right shoulder 01/03/2019:X-ray left shoulder | | 01/03/2019Last Assessment & Plan: Chronic bilateral right | | shoulder pain worse on the right, does have moderate degenerative | | changes we discussed physical therapy which he declines, he | | prefers referral to Orthopedic surgery for further evaluation and | | treatment as appropriate. Referral placed today. Provided with | | home stretches and exercises may continue NSAIDs p.r.n., NSAID | | precautions discussed. | | evaluation and treatment as appropriate. Referral placed today. Provided with home stret ches and exercises may continue NSAIDs p.r.n., NSAID precautions discussed. | + + + + + | History of kidney stones | 01/03/2019 | + + + + + | Overview: Overview: Reports history of multiple episodes.CT | | scan from ER 11/03/2018 showed large left renal pelvis | | stone.Referral to Urology 01/03/2019.Last Assessment & Plan: | | Referral to Urology for further evaluation and treatment as | | appropriate.Counseling was provided in detail today regarding | | warning signs and symptoms which would warrant re-evaluation by | | medical provider.Reports history of multiple episodes.CT scan | | from ER 11/03/2018 showed large left renal pelvis stone.Referral | | to Urology 01/03/2019.Urology note 06/22/2019-to repeat CT scan | | and consider procedure for large stoneLast Assessment & Plan: | | Referral to Urology for further evaluation and treatment as | | appropriate.Counseling was provided in detail today regarding | | warning signs and symptoms which would warrant re-evaluation by | | medical provider.Reports history of multiple episodes.CT scan | | from ER 11/03/2018 showed large left renal pelvis stone.Referral | | to Urology 01/03/2019.Urology note 06/22/2019-to repeat CT scan | | and consider procedure for large stoneOperative report | | 07/14/2019: Left URS, LL and stent by Dr. Moreno | | Assessment & Plan: Referral to Urology for further evaluation and | | treatment as appropriate.Counseling was provided in detail today | | regarding warning signs and symptoms which would warrant | | re-evaluation by medical provider. | |CT scan from ER 11/03/2018 showed large left renal pelvis stone. | | | |Referral to Urology 01/03/2019. | |Urology note 06/22/2019-to repeat CT scan and consider procedure for large stone | | | |Operative report 07/14/2019: Left URS, LL and stent by Dr. Odom | | | |Last Assessment & Plan: | |Referral to Urology for further evaluation and treatment as appropriate.Counseling was prov ided in detail today regarding warning signs and symptoms which would warrant re-evaluation by medical provider. | + + + + + | Homelessness | 01/03/2019 | + + + + + | Overview: Overview: Living in a Shack behind friend's | | house.Met with [employer]guy[employer] community payroll human resources assistant | | 01/03/2019Last Assessment & Plan: Patient met with Nguyễn Cam the | | community payroll human resources assistant today. | | | |Last Assessment & Plan: | |Patient met with Nguyễn Cam the community payroll human resources assistant today. | + + + + + | Lower urinary tract symptoms (LUTS) | 01/03/2019 | + + + + + | Overview: Overview: | | Referral to Urology 01/03/2019 | | | | Last Assessment & Plan: | | Continue Flomax, follow-up with Urology referral placed today. | + + + + + | Methamphetamine use | 01/03/2019 | + + + + + | Overview: Overview: Patient reports History of IV drug use, | | did have hepatitis-C infection which cleared on its own. He | | discontinued IV drug use but continues to use meth, smoking.Last | | Assessment & Plan: I encouraged the patient to follow up with | | [facility], for outpatient addiction recovery program he | | declines this today as he says he is following up through the [facility] obligated by his juvenile justice officer. I discouraged the use of | | meth which he reportedly continues to use from time to time, no | | IV drug use however since previous hepatitis C infection which | | reportedly cleared on its own. Offered hepatitis/HIV screening | | today he declines. | + + + + + | Tobacco dependence | 01/03/2019 | + + + + + | Overview: Overview: Chantix initiated 01/03/2019Last | | Assessment & Plan: Met with behavioral health educational consultant, will | | initiate Chantix, recheck in 1 month. | |Last Assessment & Plan: | |Met with behavioral health educational consultant, will initiate Chantix, recheck in 1 month. | + + + + + | Clubbing of nails | 11/01/2018 | + + + | History of hepatitis C | 11/01/2018 | + + + + + | Overview: Overview: History of IV drug use-methPatient | | reports hepatitis C infection cleared on his own no IV drug use | | since then continues meth use however, smoking.Last Assessment & | | Plan: Patient reports history of IV drug use, methamphetamines. | | He he did have hepatitis-C infection which he reports cleared on | | its own, no IV drug use since that time he reports. He continue | | to use meth however, smoking. He declines screening for | | HIV/hepatitis today. | + + + + + | Left-sided low back pain without sciatica | 09/07/2015 | + + + + + | Overview: Last Assessment & Plan: - pt with acute onset of | | lower back pain over past few weeks - recommend xray and referral | | to PT- Pt asked for oxycodone but with his strong history of | | 'meth" drug use I would not prescribe opioids and refilled his | | mobic- f/u as needed | + + + + + | Cellulitis | 01/22/2015 | + + + | Anxiety | 12/29/2014 | + + + + + | Overview: Last Assessment & Plan: - recommend starting celexa | | 20mg daily- will not use any addictive medication since pt is | | active meth user and h/o addiction- f/u one month | |- f/u one month | + + + + + | Drug abuse | 12/29/2014 | + + + + + | Overview: Last Assessment & Plan: Drug Abuse: Meth [last used | | two days ago and uses about twice per week]- offered referral to | | chemical dependency counselor and he declined- recommend attend | | NA meetings and get sponsor | + + + + + | PE (physical exam), annual | 12/29/2014 | + + + + + | Overview: Last Assessment & Plan: | | - Screening labs ordered | | - Colonoscopy UTD, due 2015 | | - TDAP today | | - Flu declined | | - acute and chronic issues addressed | | - f/u annual pe | + + + + + | Screening for STD (sexually transmitted disease) | 12/29/2014 | + + + + + | Overview: Last Assessment & Plan: | | - will order screening labs | + + + + + | Cracked skin | 11/16/2014 | + + + + + | Overview: Last Assessment & Plan: 54 y/o M with lesion on b/l | | hands not healing and recommend referral to derm for evaluation | + + + + + | ED (erectile dysfunction) | 11/16/2014 | + + + + + | Overview: Last Assessment & Plan: - pt is here for follow up | | from c/o not being able to maintain his erection- pt was seen | | about six months ago for same issue and ordered screening labs he | | did not have done.- recommend he have those labs drawn | + + + + + | Kidney pain | 11/16/2014 | + + + | External hemorrhoid | 10/04/2013 | + + + + + | Overview: Last Assessment & Plan: | | - pt educated on hemorrhoids and will prescribe analpram | | - will give hand out. | | - fu as needed | + + + + + | Upper respiratory infection | 08/01/2013 | + + + + + | Overview: Last Assessment & Plan: - Will require antibiotics | | for the infection to improve. - recommend hydration and | | tylenol/motrin and OTC Robitussin prn. - recommend to follow up | | in 5-7 days if not improved. - precaution given on when to | | follow up soon with worsening of symptoms. | + + + + + | Arthritis | 11/29/2012 | + + + + + | Overview: Last Assessment & Plan: | | - recommend a trial of mobic 15mg daily | + + + + + | Smoker - Daily | 11/29/2012 | + + + + + | Overview: Last Assessment & Plan: | | - recommend stop smoking | + + + + + | GERD (gastroesophageal reflux disease) | 11/19/2012 | + + + | Overweight | 11/19/2012 | + + + + + | Overview: Overview: | | Body mass index is 30.70 kg/(m^2). on 11/29/2012 | + + +------+ + | Cyst | 09/12/2011 | +------+ + + + | Overview: Last Assessment & Plan: - 51 y/o M with About 0.5cm | | lump on the right side of nose on face with an 1mm opening with | | drainage. - Pt is requesting to have lump removed. - Recommend | | referral to plastic surgery due to the location of the lump on | | face. | + + Encounters +--------+ + + + + | Date | Type | Specialty | Care Team | Description | +--------+ + + + + | 08/11/ | Hospital | Radiology | Oliver Flowers | Bilateral shoulder | | 2018 | Encounter | | MD Thomas | pain, unspecified | | | | | | chronicity | +--------+ + + + + | 08/11/ | Hospital | Radiology | Oliver Flowers | Bilateral shoulder | | 2018 | Encounter | | MD Thomas | pain, unspecified | | | | | | chronicity | +--------+ + + + + | 08/11/ | Office | Orthopedic Surgery | Oliver Flowers | Primary | | 2018 | Visit | | MD Thomas | osteoarthritis of | | | | | | right shoulder | | | | | | (Primary Dx); | | | | | | Impingement syndrome | | | | | | of left shoulder; | | | | | | Impingement syndrome | | | | | | of right shoulder | +--------+ + + + + | 07/27/ | Telephone | Urology | Alvin Odom | Urology Appointment | | 2018 | | | MD Kari | | +--------+ + + + + | 07/26/ | Office | Urology | Alvin Odom | Kidney stones | | 2018 | Visit | | MD Kari | (Primary Dx) | +--------+ + + + + | 07/14/ | Anesthesia | | Jai Santoyo | | | 2018 | Event | | MD Kaveh | | +--------+ + + + + | 07/14/ | Surgery | | | CYSTOSCOPY Left | | 2018 | | | | URETEROSCOPY W/ | | | | | | LASER lithotriopsy | | | | | | and stent PLACEMENT | +--------+ + + + + | 07/14/ | Hospital | | Alvin Odom | Kidney stone on left | | 2019 | Encounter | | MD Kari | side; Gross | | | | | | hematuria | +--------+ + + + + | 07/05/ | Telephone | Urology | Alvin Odom | Surgery Appointment | | 2018 | | | MD Kari | | +--------+ + + + + | 06/29/ | Office | Urology | Alvin Odom | Kidney stone on left | | 2018 | Visit | | MD Kari | side (Primary Dx); | | | | | | Gross hematuria | +--------+ + + + + | 06/27/ | Telephone | Urology | Alvin Odom | Results (CT ); | | 2018 | | | MD Kari | Hematuria | +--------+ + + + + | 06/23/ | Imaging | Radiology | Provider, | | | 2018 | Exam | | MD Felipa | | +--------+ + + + + | 06/23/ | Telephone | Urology | Alvin Odom | Surgery Appointment; | | 2018 | | | MD Kari | Radiology | | | | | | Appointment | +--------+ + + + + 06/22/ | Office | Urology | Alvin Odom | Abnormal urinalysis | | 2018 | Visit | | MD Kari | (Primary Dx); Kidney | | | | | | stones; Kidney | | | | | | stone on left side | +--------+ + + + + | 06/06/ | Orders Only | | Provider, | | | 2018 | | | MD Felipa | | +--------+ + + + + from Last 3 Months Family History + + +------+ + | Medical History | Relation | Name | Comments | + + +------+ + | Prostate cancer | Maternal | | | | | Grandfath | | | | | er | | | + + +------+ + + +------+--------+ + | Relation | Name | Status | Comments | + +------+--------+ + | Maternal Grandfather | | | | + +------+--------+ + Social History + + + +--------+------+ [...] recent travel history available. | + + Last Filed Vital Signs + + + + | Vital Sign | Reading | Time Taken | + + + + | Blood Pressure | 128/80 | 07/26/2019 1357 PDT | + + + + | Pulse | 72 | 07/26/2019 135 PDT | + + + + | Temperature | 37.1 C (98.8 F) | 07/14/2019 1040 PDT | + + + + | Respiratory Rate | 18 | 07/26/2019 1357 PDT | + + + + | [...] Height | 170.2 cm (5' 7") | 08/11/20191610 PDT | + + + + | Body Mass Index | 30.21 | 08/11/20191610 PDT | + + + + Plan of Treatment +--------+---------+ + + + | Date | Type | Specialty | Care Team | Description | +--------+---------+ + + + | 10/03/ | Office | Urology | Alvin Odom | | | 2018 | Visit | | MD Kari [address] | | | | | | [place] | | | | | | [phone] | | | | | | | | +--------+---------+ + + + | 10/11/ | Office | Orthopedic Surgery | Oliver Flowers | | | 2018 | Visit | | MD Thomas [address] | | | | | | [address] | | | | | | [place] [address] | | | | | | [phone] | | | | | | | | +--------+---------+ + + + + + + + + | Health Maintenance | Due Date | Last Done | Comments | + + + + + | Hepatitis C | | | | | Screening | 9 | | | + + + + + | Urine Drug Screening | | | | | | 5 | | | + + + + + | Vaccine: Zoster (1 | | | | | of 2) | 9 | | | + + + + + | Colorectal Cancer | | 05/06/2011 | | | Screening | 6 | | | | (Colonoscopy) | | | | + + + + + | Vaccine: | | 01/03/2019, 02/23/2013 | | | Dtap/Tdap/Td (3 - | 9 | (Declined), 02/23/2013 | | | Td) | | (Declined) | | + + + + + | Vaccine: Influenza | Completed | 08/01/2019, 11/19/2012 | | | | | (Declined) | | + + + + + | Vaccine: | Completed | 08/01/2019 | | | Pneumococcal 19-64 | | | | | (PPSV23 only) Medium | | | | | Risk | | | | + + + + + Implants + +-------+--------+ +--------+--------+--------+ | Implanted | Type | Area | Manufacture | Device | Shelf | Model | | | | | r | | Expira | / | | | | | | Identi | tion | Serial | | | | | | fier | Date | / Lot | + +-------+--------+ +--------+--------+--------+ | Stent Uret W/Pstnr Frm 6 | Stent | Left: | COOK | | 04/01/ | [id number] | | - [id number]: | | Ureter | [employer] | | 2 | / | | Qty: 1 on 07/14/2019 by | | | Leonor VALLADARES | | | [id number] | | Alvin Odom MD | | | | | | 70 | + +-------+--------+ +--------+--------+--------+ Procedures + +--------+ + + + | Procedure Name | Priori | Date/Time | Associated Diagnosis | Comments | | | ty | | | | + +--------+ + + + | XR SHOULDER RIGHT 1 | Routin | 08/11/2019 | Bilateral [...] | + +--------+ + + + | ANE AIRWAY NOTE | Routin | 07/14/2019 | | Results for this | | | e | 10:02 PDT | | procedure are in the [...] | + +--------+ + + + | CBC W/AUTO | Routin | 06/29/2019 | Kidney stone on | Results for this | | DIFFERENTIAL | e | 17:19 PDT | left side | procedure are in the | | | | | | results section. | + +--------+ + + + | BASIC METABOLIC | Routin | 06/29/2019 | Kidney stone on | Results for this | | PANEL | e | 17:19 PDT | left side | procedure are in the | | | | | | results section. | + +--------+ + + + | IMAGING REPORT - | | 06/23/2019 | | Results for this | | EXTERNAL SCAN | | 0:00 PDT | | procedure are in the | | | | | | results section. | + +--------+ + + + | CT ABDOMEN PELVIS WO | Routin | 06/23/2019 | | Results for this | | CONTRAST | e | 0:00 PDT | | procedure are in the | | | | | | results section. | + +--------+ + + + | POCT URINALYSIS, | Routin | 06/22/2019 | Abnormal | Results for this | | AUTO WITH CONF | e | 16:44 PDT | urinalysis | procedure are in the | | | | | | results section. | + +--------+ + + + | URINALYSIS, | Routin | 06/22/2019 | Abnormal | Results for this | | MICROSCOPIC ONLY, | e | 16:44 PDT | urinalysis | procedure are in the | | WITH CULTURE IF | | | | results section. | | INDICATED | | | | | + +--------+ + + + | DIAGNOSTIC REPORT - | | 06/22/2019 | | Results for this | | EXTERNAL SCAN | | 0:00 PDT | | procedure are in the | | | | | | results section. | + +--------+ + + + from Last 3 Months Results XR Shoulder Right 1 Vw (08/11/2019 [...] | | | + +---------+ + + [place] Pyelogram Retrograde (07/14/2019 10:35 PDT) + + | [...] [facility] | | | | | | at:[phone]. | | | | + + + [...] test was developed and | | LAB [facility] | | | | its performance | | - [facility] | | | | characteristicsdetermine | | | | | | d by [facility]. It has not | | | | [...] + + | Performed at: 01 - [facility] [address], | REFERENCE LAB | | [place], [place] [id number] Hazardous Waste Material Technician: Yovanny Walsh MD, | [facility] | | Phone: [phone] | | + + + + + + + + | Performing | Address | City/State/Zipcode | Phone Number | | Organization | | | | + + + + + | REFERENCE LAB | [address] | [place] [address] | [phone] | | [facility] | [place] | | | + + + + + Anesthesia Airway Note (07/14/2019 10:02 PDT) + [...] dioxide detectionPerforming provider: Jai Santoyo | | Sridhar see intraoperative grid for any additional medication [...] any additional medication documentation. | + + PTT (07/14/2019 7:43 PDT) + +-------+ + + + | Component | Value | Ref Range | Performed | Pathologist | | | | | At | Signature | + +-------+ + + + | aPTT | 36 | 22 - 36 seconds | [facility] | | | | | [...] | + + + + + | [facility] | [address] | [place] | [phone] | | [facility] | | [address] | | | - LABORATORY | | [...] + | [facility] | [address] | [place] | [phone] | | [facility] | | [address] | | | - LABORATORY | | [...] | | | | | | [facility] | | | | | | MEDICAL [...] + | [facility] | [address] | [place] | [phone] | | [facility] | | [address] | | | - LABORATORY | | | | + + + + + CBC w/ Auto Differential (06/29/2019 17:19 PDT) + + + + + + | Component | Value | Ref Range | Performed | Pathologist | | | | | At | Signature | + + + + + + | WBC | 6.2 | 4.0 - 11.0 K/uL | [facility] | | | | | | [facility] | | | | | | MEDICAL | | | | | | [facility] - | | | | | | LABORATORY | | + + + + + + | RBC | 4.50 | 4.30 - 5.70 | [facility] | | | | | M/uL | [facility] | | | | | | MEDICAL | | | | | | CENTER - | | | | | | LABORATORY | | + + + + + + | Hemoglobin | 14.9 | 13.5 - 18.0 | [facility] | | | | | g/dL | [facility] | | | | | | MEDICAL | | | | | | CENTER - | | | | | | LABORATORY | | + + + + + + | Hematocrit | 43.5 | 40.0 - 51.0 % | [facility] | | | | | | [facility] | | | | | | MEDICAL | | | | | | CENTER - | | | | | | LABORATORY | | + + + + + + | MCV | 96.7 | 83.0 - 101.0 fL | [facility] | | | | | | [facility] | | | | | | MEDICAL | | | | | | CENTER - | | | | | | LABORATORY | | + + + + + + | MCH | 33.1 | 28.0 - 35.0 pg | [facility] | | | | | | [facility] | | | | | | MEDICAL | | | | | | CENTER - | | | | | | LABORATORY | | + + + + + + | MCHC | 34.3 | 32.0 - 36.0 | [facility] | | | | | g/dL | [facility] | | | | | | MEDICAL | | | | | | CENTER - | | | | | | LABORATORY | | + + + + + + | RDW-CV | 11.9 | <15.0 % | [facility] | | | | | | [facility] | | | | | | MEDICAL | | | | | | CENTER - | | | | | | LABORATORY | | + + + + + + | RDW-SD | 42.4 | 35.1 - 46.3 fL | [facility] | | | | | | [facility] | | | | | | MEDICAL | | | | | | CENTER - | | | | | | LABORATORY | | + + + + + + | Platelet | 245 | 140 - 440 K/uL | [facility] | | | Count | | | [facility] | | | | | | MEDICAL | | | | | | CENTER - | | | | | | LABORATORY | | + + + + + + | MPV | 10.0 | 6.5 - 12.4 fL | [facility] | | | | | | [facility] | | | | | | MEDICAL | | | | | | CENTER - | | | | | | LABORATORY | | + + + + + + | % | 42.6 (L) | 45.0 - 82.0 % | [facility] | | | Neutrophils | | | [facility] | | | | | | MEDICAL | | | | | | CENTER - | | | | | | LABORATORY | | + + + + + + | % | 41.1 | 20.0 - 45.0 % | [facility] | | | Lymphocytes | | | [facility] | | | | | | MEDICAL | | | | | | CENTER - | | | | | | LABORATORY | | + + + + + + | % Monocytes | 13.3 (H) | 4.0 - 12.0 % | [facility] | | | | | | [facility] | | | | | | MEDICAL | | | | | | CENTER - | | | | | | LABORATORY | | + + + + + + | % | 2.3 | 0.0 - 5.0 % | [facility] | | | Eosinophils | | | [facility] | | | | | | MEDICAL | | | | | | CENTER - | | | | | | LABORATORY | | + + + + + + | % Basophils | 0.5 | 0.0 - 1.0 % | [facility] | | | | | | [facility] | | | | | | MEDICAL | | | | | | CENTER - | | | | | | LABORATORY | | + + + + + + | % Immature | 0.2 | 0.0 - 0.4 % | [facility] | | | Granulocyte | | | [facility] | | | s | | | MEDICAL | | | | | | CENTER - | | | | | | LABORATORY | | + + + + + + | Absolute | 2.64 | 1.80 - 8.50 | [facility] | | | Neutrophils | | K/uL | [facility] | | | | | | MEDICAL | | | | | | CENTER - | | | | | | LABORATORY | | + + + + + + | Absolute | 2.54 | 0.60 - 3.20 | [facility] | | | Lymphocytes | | K/uL | [facility] | | | | | | MEDICAL | | | | | | CENTER - | | | | | | LABORATORY | | + + + + + + | Absolute | 0.82 | 0.00 - 1.00 | [facility] | | | Monocytes | | K/uL | [facility] | | | | | | MEDICAL | | | | | | CENTER - | | | | | | LABORATORY | | + + + + + + | Absolute | 0.14 | 0.00 - 0.40 | [facility] | | | Eosinophils | | K/uL | [facility] | | | | | | MEDICAL | | | | | | CENTER - | | | | | | LABORATORY | | + + + + + + | Absolute | 0.03 | 0.00 - 0.10 | [facility] | | | Basophils | | K/uL | [facility] | | | | | | MEDICAL | | | | | | CENTER - | | | | | | LABORATORY | | + + + + + + | Absolute | 0.01 | 0.00 - 0.03 | [facility] | | | Immature | | K/uL | [facility] | | | Granulocyte | | | MEDICAL | | | s | | | CENTER - | | | | | | LABORATORY | | + + + + + + | % nRBC | 0 | 0 - 2 per 100 | [facility] | | | | | WBCs | [facility] | | | | | | [facility] | | | | | | CENTER - | | | | | | LABORATORY | | + + + + + + | Absolute | 0.00 | 0.00 - 0.01 | [facility] | | | nRBC | | K/uL | [facility] | | | | [...] + | [facility] | [address] | [place], [place] | [phone] | | [facility] | | [address] | | | - LABORATORY | | | | + + + + + Basic Metabolic Panel (06/29/2019 17:19 PDT) + + + + + + | Component | Value | Ref Range | Performed | Pathologist | | | | | At | Signature | + + + + + + | Na | 136 | 136 - 145 | [facility] | | | | | mmol/L | [facility] | | | | | | MEDICAL | | | | | | CENTER - | | | | | | LABORATORY | | + + + + + + | K | 3.7 | 3.4 - 5.1 | [facility] | | | | | mmol/L | [facility] | | | | | | MEDICAL | | | | | | CENTER - | | | | | | LABORATORY | | + + + + + + | Cl | 105 | 98 - 107 mmol/L | [facility] | | | | | | [facility] | | | | | | MEDICAL | | | | | | CENTER - | | | | | | LABORATORY | | + + + + + + | CO2 | 28 | 20 - 31 mmol/L | [facility] | | | | | | [facility] | | | | | | MEDICAL | | | | | | CENTER - | | | | | | LABORATORY | | + + + + + + | Anion Gap | 3 | 3 - 16 mmol/L | [facility] | | | | | | [facility] | | | | | | MEDICAL | | | | | | CENTER - | | | | | | LABORATORY | | + + + + + + | Glucose | 103 | 60 - 106 mg/dL | [facility] | | | | | | [facility] | [facility] | [facility] | | | | | | CENTER - | | | | | | LABORATORY | | + + + + + + | BUN | 15 | 9 - 23 mg/dL | [facility] | | | | | | [facility] | | | | | | MEDICAL | | | | | | CENTER - | | | | | | LABORATORY | | + + + + + + | Creatinine | 0.99 | 0.70 - 1.30 | [facility] | | | | | mg/dL | [facility] | | | | | | MEDICAL | | | | | | CENTER - | | | | | | LABORATORY | | + + + + + + | eGFR if not | >60Comment: GLOMERULAR | >=60 | [facility] | | | | FILTRATION | mL/min/1.73m2 | [facility] | | | MACANESE | RATE,ESTIMATED mL/min | | MEDICAL | | | | /1.09z5Jiji than 60 | | CENTER - | | | | Chronic kidney | | LABORATORY | | | | disease,if found over a | | | | | | 3-month period.Less than | | | | | | 15 Kidney | | | | | | failureFor | | | | | | Americans,multiply the | | | | | | calculated GFR by 1.21. | | | | | | | | | | + + + + + + | Calcium | 9.8 | 8.7 - 10.4 | [facility] | | | | | mg/dL | [facility] | | | | | | MEDICAL | | | | | | CENTER - | | | | | | LABORATORY | | + + + + + + | BUN/Creatin | 15.2 | | [facility] | | | ine Ratio | | | [facility] | | [...] | + + + + + | [facility] | [address] | [place], [place] | [phone] | | [facility] | | [address] | | | - LABORATORY | | | | + + + + + IMAGING REPORT - EXTERNAL SCAN (06/23/2019 0:00 PDT) + + + | Narrative | Performed At | + + + | Ordered by an | | | unspecified provider. | | + + + CT Abdomen Pelvis wo Contrast (06/23/2019 0:00 PDT) + + | Specimen | + + | | + + + + + | Narrative | Performed At | + + + | External films for comparison only | [facility] | | | | | No results will be in the chart. | | + + + + +---------+ + + | Performing | Address | City/State/Zipcode | Phone Number | | Organization | | | | + +---------+ + + | [facility] | | | | + +---------+ + + Urinalysis, Microscopic Only, with Culture if Indicated (06/22/2019 16:44 PDT) + + + + + + | Component | Value | Ref Range | Performed | Pathologist | | | | | At | Signature | + + + + + + | WBC UA | 10-15 (A) | 0 - 2 /HPF | [facility] | | | | | | [facility] | | | | | | MEDICAL | | | | | | CENTER - | | | | | | LABORATORY | | + + + + + + | RBC UA | >100 (A) | 0 - 2 /HPF | [facility] | | | | | | [facility] | | | | | | MEDICAL | | | | | | CENTER - | | | | | | LABORATORY | | + + + + + + | SQUAMOUS | 2-5 (A) | 0 - 2 /LPF | [facility] | | | EPITHELIAL | | | [facility] | | | UA | | | MEDICAL | | | | | | CENTER - | | | | | | LABORATORY | | + + + + + + | BACTERIA UA | Negative | Negative /HPF | [facility] | | | | | | [facility] | | | | | | MEDICAL | | | | | | CENTER - | | | | | | LABORATORY | | + + + + + + | MUCUS UA | Present (A) | Negative /LPF | [facility] | | | | | | [facility] | | | | | | MEDICAL | | | | | | CENTER - | | | | | | LABORATORY | | + + + + + + | URINE | Urine Culture Not | | [facility] | | | COMMENT | Indicated | | [facility] | | | [facility] | | MEDICAL | | | | | | CENTER - | | | | | | LABORATORY | | + + + + + + + + | Specimen | + + | Urine | + + + + + + + | Performing | Address | City/State/Zipcode | Phone Number | | Organization | | | | + + + + + | [facility] | [address] | [place] | [phone] | | [facility] | | [address] | | | - LABORATORY | | | | + + + + + POCT Urinalysis (06/22/2019 16:44 PDT) + + + + + + | Component | Value | Ref Range | Performed | Pathologist | | | | | At | Signature | + + + + + + | Color, UA, | Caterina (A) | Yellow, Light | | | | POC | | Yellow | | | + + + + + + | Clarity, | Cloudy | | | | | UA, POC | | | | | + + + + + + | Glucose, | Negative | Negative | | | | UA, POC | | | | | + + + + + + | Bilirubin, | Negative | Negative | | | | UA, POC | | | | | + + + + + + | Ketones, | Negative | Negative, 100 | | | | UA, POC | | mg/dL | | | + + + + + + | Specific | 1.025 | 1.001 - 1.030 | | | | [place], | | | | | | UA, POC | | | | | + + + + + + | Blood, UA, | Moderate (A) | Negative | | | | POC | | | | | + + + + + + | pH, UA, POC | 6.5 | 5.0, 6.0, 7.0, | | | | | | 8.0, 5.5, 6.5, | | | | | | 7.5 | | | + + + + + + | Protein, | 100 mg/dL (A) | Negative | | | | UA, POC | | | | | + + + + + + | Urobilinoge | 0.2 | 0.2, Negative, | | | | n, UA, POC | | Normal, < 0.2 | | | | | | mg/dL, 1 mg/dL, | | | | | | < 0.2 E.U./dl, | | | | | | 1.0 E.U./dL, | | | | | | 0.2 mg/dL | | | + + + + + + | Nitrite, | Negative | Negative | | | | UA, POC | | | | | + + + + + + | Leukocyte | Negative | Negative | | | | Esterase, | | | | | | UA, POC | | | | | + + + + + + | Reducing | | | | | | Substances, | | | | | | Urine | | | | | + + + + + + | Ictotest | | Negative | | | + + + + + + | Remark | | | | | + + + + + + + + | Specimen | + + | Urine | + + DIAGNOSTIC REPORT - EXTERNAL SCAN (06/22/2019 0:00 PDT) + + + | Narrative | Performed At | + + + | Ordered by an | | | unspecified provider. | | + + + from Last 3 Months Insurance + +--------+ +--------+ +---------+--------+ | Payer | Benefi | Subscriber | Effect | Phone | Address | Type | | | t Plan | ID | mamadou | | | | | | / | | Dates | | | | | | Group | | | | | | + +--------+ +--------+ +---------+--------+ | [employer] | [employer] | [id number] | | [phone] | | Medica | | MEDICAID HMO | HEALTH | | [id number] | 1 | | id | | | MDCD | | esent | | | | | | [place]MO [place] | | | | | | + +--------+ +--------+ +---------+--------+ + +--------+ +--------+ + + | Guarantor Name | Accoun | Relation to | Date | Phone | Billing Address | | | t Type | Patient | of | | | | | | | | | | + +--------+ +--------+ + + | Fawad Dowell | Person | Self [birth year] | [address] | | | al/Fam | | 1959 | [phone] | [place] [address] | | | lucrecia | | | 7 (Home) | | + +--------+ +--------+ + + | Fawad Dowell | Worker | Self | [birth year] | NEED ADDRESS | | | s Comp | | 1959 | [phone] | [place] | | | | | | 2 (Home) | [id number] | + +--------+ +--------+ + + Advance Directives Patient has advance care planning documents, and code status on file. For more information, please contact:[facility] [place] [address] + + + + + | Code Status | Date | Date | Comments | | | Activated | Inactivated | | + + + + + | Full Code | 07/14/2019 | 07/14/2019 | | | | 10:45 | 14:48 | | + + + + +
--- OUTSIDE RECORDS SUMMARY | ~2019-08-18 | XMS | Encounter Summary ---
Demographics + + + | Address | [address] | | | [place] [address] | + + + | Home Phone | | + + + | Preferred Language | Unknown | + + + | Marital Status | | + + + | Zoroastrianism Affiliation | 1013 | + + + | Race | Unknown | + + + | Ethnic Group | Unknown | + + + Author + + + | Author | [facility] | | | and [place] | + + + | Organization | [facility] | | | and [place] | + + + | Address | Unknown | + + + | Phone | Unavailable | + + + Support + + + + + | Name | Relationship | Address | Phone | + + + + + | Monica Hsu | RONEN | [place], | | | | | [place] [address] | | + + + + + Care Team Providers + +------+ + | Care Precision Filer Hand Name | Role | Phone | + +------+ + | Tariq Byers PA-C | PCP | | + +------+ + Encounter Details +--------+ + + + + | Date | Type | Department | Care Team | Description | +--------+ + + + + | 06/06/ | Orders Only | [facility] | Provider, | | | 2019 | | SYSTEM GENERIC OP | MD [address] | | | | | [address] | [place] | | | | | [address] [place], [place] | [place] [address] | | | | | [address] | | | | | | [phone] | | | +--------+ + + + [...] 2018 | Visit | | MD Shayy Pierce | | | | | | [place] | | | | | | [address] | | | | | | | | +--------+---------+ + + + | 10/11/ | Office | Orthopedic Surgery | Oliver Flowers | | | 2018 | Visit | | MD Shayy Guzman | | | | | | [address] | | | | | | [place] [address] | | | | | | [phone] | | | | | | | | +--------+---------+ + + + documented as of this encounter Visit Diagnoses Not on filedocumented in this encounter"
--- OUTSIDE RECORDS SUMMARY | ~2019-08-18 | XMS | Encounter Summary ---
Demographics + + + | Address | [address] | | | [place] [address] | + + + | Home Phone | | + + + | Preferred Language | Unknown | + + + | Marital Status | | + + + | Uatsdin Affiliation | 1013 | + + + | Race | Unknown | + + + | Ethnic Group | Unknown | + + + Author + + + | Author | [facility] | | | and [place] | + + + | Organization | [facility] | | | and [place] | + + + | Address | Unknown | + + + | Phone | Unavailable | + + + Support + + + + + | Name | Relationship | Address | Phone | + + + + + | Monica Hsu | RONEN | [place], | | | | | [place] [address] | | + + + + + Care Team Providers + +------+ + | Care China And Silverware Salesperson Name | Role | Phone | + +------+ + | Tariq Byers PA-C | PCP | | + +------+ + Encounter Details +--------+ + + + + | Date | Type | Department | Care Team | Description | +--------+ + + + + | 08/11/ | [facility] | [facility] | Oliver Flowers | Bilateral shoulder | | 2019 | Encounter | [facility] [address] | MD [address] | pain, unspecified | | | | [address] | [place] | chronicity | | | | [place], [place] | [place] [address] | | | | | [address] | [phone] | | | | | [phone] | | | +--------+ + + + [...] | | | | | [place] [address] | | | | | | [phone] | | | | | | | [...] documented in this encounter Results XR Shoulder Right 1 [...]
--- OUTSIDE RECORDS SUMMARY | ~2019-08-18 | XMS | Encounter Summary ---
Demographics + + + | Address | [address] | | | [place] [address] | + + + | Home Phone | | + + + | Preferred Language | Unknown | + + + | Marital Status | | + + + | Presybeterian Affiliation | 1013 | + + + | Race | Unknown | + + + | Ethnic Group | Unknown | + + + Author + + + | Author | [facility] | | | and [place] | + + + | Organization | [facility] | | | and [place] | + + + | Address | Unknown | + + + | Phone | Unavailable | + + + Support + + + + + | Name | Relationship | Address | Phone | + + + + + | Monica Hsu | RONEN | [place], | | | | | [place] [address] | | + + + + + Care Team Providers + +------+ + | Care Product Safety And Standards Engineer Name | Role | Phone | + +------+ + | Tariq Byers PA-C | PCP | | + +------+ + Reason for Visit +---------+ + | Reason | Comments | +---------+ + | Post Op | Cystoscopy with stent removal for kidney stone | +---------+ + Encounter Details +--------+---------+ + + + | Date | Type | Department | Care Team | Description | +--------+---------+ + + + | 07/26/ | Office | [facility] | Alvin Odom | Kidney stones | | 2019 | Visit | [address] | MD [address] | (Primary Dx) | | | | [place] | [place], [place] | | | | | [address] | [address] | | | | | [phone] | | | +--------+---------+ + + + [...] + | Blood Pressure | 128/80 | 07/26/20191356 PDT | + + + + | Pulse | 72 | 07/26/20191356 PDT | + + + + | Temperature | - | - | + + + + | Respiratory Rate | 18 | 07/26/20191356 PDT | + + + + | Oxygen Saturation | - | - | + + + + | Inhaled Oxygen | - | - | | Concentration | | | + + + + | Weight | 87.5 kg (192 lb 14.4 | 07/26/2019 1357 PDT | | | oz) | | + + + + | Height | 170.2 cm (5' 7") | 07/26/2019 1357 PDT | + + + + | Body Mass Index | 30.21 | 07/26/2019 1357 PDT | + + + + documented in this encounter Progress Notes Alvin Odom MD - 07/26/2019 1400 PDT Chief Complaint Patient presents with Post Op Cystoscopy with stent removal for kidney stone HPI Fawad Dowell is a 58 y.o. male patient of Tariq Byers PA-C here today for Post Op Cystoscopy with stent removal for kidney stone. A Left URS LL and stent done on 9 Consent form signed & time out form completed Status post ureteroscopy laser lithotripsy and stent Patient presents today for stent removal Cystoscopy Preprocedure timeout was performed. The patient's genitals were then prepped and draped us ual fashion. 10 mL's of viscous lidocaine was instilled per urethra. The scope was then in troduced into the urethra. The anterior urethra was grossly normal. 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 U zaki entering the bladder rodriges cystoscopy was performed. The left ureteral stent was visualiz ed and using a pair of graspers was removed. The stent was then inspected and found to be i ntact. The patient tolerated the procedure well. Assessment Fawad was seen today for post op. Diagnoses and all orders for this visit: Kidney stones - Parathyroid Hormone, Intact; Future - Uric Acid; Future Other orders - HYDROcodone-acetaminophen (NORCO) 5-325 mg per tablet; Take 1-2 tablets by mouth ever y 4 hours as needed for Pain. Plan Parathyroid hormone and uric acid levels 24-hour urine-in 4 weeks Follow-up in 8 weeks Patient is extremely concerned about additional pain with the stent removed. He states dur ing last procedure he had extensive pain for weeks afterwards. Patient was given an additio nal 10 pain pills. If he requires any additional pain meds he will need to be seen in the e mergency department or schedule a clinic visit. Past Medical History Past Medical History: Diagnosis [...] PLACEMENT; Surgeo n: Alvin Odom MD; Location: [facility] MAIN OR VASECTOMY Family History: Family History Problem Relation [...] Methamphetamines Comment: None since January 19, 2019 No Known Allergies Medications: Current Outpatient Medications: HYDROcodone-acetaminophen (NORCO) 5-325 mg per tablet, Take 1-2 tablets by mouth every 4 hours as needed for Pain., Disp: 10 tablet, Rfl: 0 meloxicam (MOBIC) 15 mg tablet, take 1 tablet by mouth once daily, Disp: , Rfl: 0 tamsulosin (FLOMAX) 0.4 mg CAPS, Take 1 capsule by mouth nightly for 30 days., Disp: 3 0 capsule, Rfl: 0 Objective BP 128/80 | Pulse 72 | Resp 18 | Ht 1.702 m (5' 7") | Wt 87.5 kg (192 lb 14.4 oz) | BM I 30.21 kg/m General Appearance: Alert, cooperative, no distress, [...] cholecystectomy Results for orders placed or performed during the hospital encounter of 07/14/19 Protime INR Result Value Ref Range Prothrombin Time 12.5 11.3 - 13.9 seconds INR 0.9 0.9 - 1.1 PTT Result Value Ref Range aPTT 36 22 - 36 seconds Hepatic Function Panel Result Value Ref Range Bilirubin Total 0.9 0.3 - 1.2 mg/dL Total Protein 6.6 5.7 - 8.2 g/dL Albumin 4.2 3.2 - 4.8 g/dL AST 21 0 - 34 U/L ALT 20 10 - 49 U/L Alkaline Phosphatase 72 46 - 116 U/L Globulin 2.4 2.1 - 3.8 g/dL Albumin/Globulin Ratio 1.8 0.8 - 1.9 Bilirubin, Direct 0.20 0.00 - 0.30 mg/dl Calculi Analysis Result Value Ref Range CALCULI SIZE Comment mm Stone Composition Comment Color Aranda Calculi Weight 206.8 mg Ca Oxalate,Dihydrate 40 % Ca Oxalate,Monohydr. 45 % STONE CA PHOSPHATE 15 % Nidus No Nidus visualized Comment Note: Photo Comment CALCULI COMMENT Comment Please note Comment Disclaimer Comment Lab Results Component Value Date CREA 0.99 06/29/2019 Tariq Byers PA-C's notes were reviewed in clinic today. Return in about 8 weeks (around 09/20/2019).. This document was generated in part using voice recognition software. Frequent wrong word or sound-alike substitutions may have occurred due to the inherent limitations of the voice recognition software. Although I have attempted to edit the content, I have not thoroughly proofread this note, and top lift and automatic window repairer errors are very likely to occur. CC: Tariq Byers PA-C documented in thi s encounter Plan of Treatment +--------+---------+ + + + | Date | Type | Specialty | Care Team | Description | +--------+---------+ + + + | 10/03/ | Office | Urology | Alvin Odom | | | 2019 | Visit | | MD Kari [address] [place] [address] | | | | | | [place] | | | | | | [address] | | | | | | | | +--------+---------+ + + + | 10/11/ | Office | Orthopedic Surgery | Oliver Flowers | | | 2018 | Visit | | MD [address] | | | | | | [address] [place] | | | | | | [place] [address] | | | | | | [phone] | | | | | | | | +--------+---------+ + + + + +--------+ + + | Name | Priori | Associated Diagnoses | Order Schedule | | | ty | | | + +--------+ + + | Parathyroid Hormone, Intact | Routin | Kidney stones | 1 Occurrences | | | e | | starting 07/26/2019 | | | | | until 07/26/2020 | + +--------+ + + | Uric Acid | Routin | Kidney stones | 1 Occurrences | | | e | | starting 07/26/2019 | | | | | until 07/26/2020 | + +--------+ + + documented as of this encounter Visit Diagnoses + + | Diagnosis | + + | Kidney stones - Primary Calculus of kidney | + + documented in this encounter
--- OUTSIDE RECORDS SUMMARY | ~2019-08-18 | XMS | Encounter Summary ---
Demographics + + + | Address | [address] | | | [place] [address] | + + + | Home Phone | | + + + | Preferred Language | Unknown | + + + | Marital Status | | + + + | Scientology Affiliation | 1013 | + + + | Race | Unknown | + + + | Ethnic Group | Unknown | + + + Author + + + | Author | [facility] | | | and [place] | + + + | Organization | [facility] | | | and [place] | + + + | Address | Unknown | + + + | Phone | Unavailable | + + + Support + + + + + | Name | Relationship | Address | Phone | + + + + + | Monica Hsu | RONEN | [place], | | | | | [place] [address] | | + + + + + Care Team Providers + +------+ + | Care Recycling Technician Name | Role | Phone | + +------+ + | Tariq Byers PA-C | PCP | | + +------+ + Encounter Details +--------+ + + + + | Date | Type | Department | Care Team | Description | +--------+ + + + + | 08/11/ | [facility] | [facility] | Oliver Flowers | Bilateral shoulder | | 2019 | Encounter | [facility] [address] [facility] | MD [address] | pain, unspecified | | | | [address] | [address] [place] | chronicity | | | | [place], [place] | [place] [address] | | | | | [address] | [phone] | | | | | [phone] | | | +--------+ + + + [...] | | | | | [place] [address] | | | | | | [phone] | | | | | | | [...]
--- OUTSIDE RECORDS SUMMARY | ~2019-08-18 | XMS | Encounter Summary ---
Demographics + + + | Address | [address] | | | [place] [address] | + + + | Home Phone | | + + + | Preferred Language | Unknown | + + + | Marital Status | | + + + | Amish Affiliation | 1013 | + + + | Race | Unknown | + + + | Ethnic Group | Unknown | + + + Author + + + | Author | [facility] | | | and [place] | + + + | Organization | [facility] | | | and [place] | + + + | Address | Unknown | + + + | Phone | Unavailable | + + + Support + + + + + | Name | Relationship | Address | Phone | + + + + + | Monica Hsu | RONEN | [place], | | | | | [place] [address] | | + + + + + Care Team Providers + +------+ + | Care Cardiovascular Rn Name | Role | Phone | + +------+ + | Tariq Byers PA-C | PCP | | + +------+ + Reason for Visit + + + | Reason | Comments | + + + | Results | CT | + + + | Hematuria | | + + + Encounter Details +--------+ + + + + | Date | Type | Department | Care Team | Description | +--------+ + + + + | 06/27/ | Telephone | [facility] | Alvin Odom | Results (CT ); | | 2019 | | [address] | MD [address] | Hematur[place] | | | | [place], [place] | [place], [place] | | | | | [address] | [address] | | | | | [phone] | | | +--------+ + + + [...] [place] | | | | | | [address] | | | | | | | | +--------+---------+ + + + | 10/11/ | Office | Orthopedic Surgery | Oliver Flowers | | | 2019 | Visit | | MD [address] | | | | | | [address] | | | | | | [place] [address] | | | | | | [phone] | | | | | | | | +--------+---------+ + + + documented as of this encounter Visit Diagnoses Not on filedocumented in this encounter"
--- OUTSIDE RECORDS SUMMARY | ~2019-08-18 | XMS | Encounter Summary ---
Demographics + + + | Address | [address] | | | [place] [address] | + + + | Home Phone | | + + + | Preferred Language | Unknown | + + + | Marital Status | | + + + | Zoroastrianism Affiliation | 1013 | + + + | Race | Unknown | + + + | Ethnic Group | Unknown | + + + Author + + + | Author | [facility] | | | and [place] | + + + | Organization | [facility] | | | and [place] | + + + | Address | Unknown | + + + | Phone | Unavailable | + + + Support + + + + + | Name | Relationship | Address | Phone | + + + + + | Monica Hsu | RONEN | [place], | | | | | [place] [address] | | + + + + + Care Team Providers + +------+ + | Care Pastry Wrapper Name | Role | Phone | + +------+ + | Tariq Byers PA-C | PCP | | + +------+ + Encounter Details +--------+ + + + + | Date | Type | Department | Care Team | Description | +--------+ + + + + | 06/06/ | Orders Only | [facility] | Provider, | | | 2019 | | SYSTEM GENERIC OP | MD [address] | | | | | [address] | [address] [place] | | | | | [address] [place], [place] | [place] [address] | | | | | [address] | | | | | | [phone] | | | +--------+ + + + [...] | | | | | [address] [place] | | | | | | [address] | | | | | | | | +--------+---------+ + + + | 10/11/ | Office | Orthopedic Surgery | Oliver Flowers | | | 2018 | Visit | | MD Shayy Guzman | | | | | | [address] | | | | | | [place] [address] | | | | | | [phone] | | | | | | | | +--------+---------+ + + + documented as of this encounter Visit Diagnoses Not on filedocumented in this encounter"
--- OUTSIDE RECORDS SUMMARY | ~2019-08-18 | XMS | Clinical Summary ---
Demographics + + + | Address | [address] | | | [place] [address] | + + + | Home Phone | | + + + | Preferred Language | Unknown | + + + | Marital Status | | + + + | Catholic Affiliation | 1013 | + + + | Race | Unknown | + + + | Ethnic Group | Unknown | + + + Author + + + | Author | [facility] | | | and [place]iraana | + + + | Organization | [facility] | | | and [place] | + + + | Address | Unknown | + + + | Phone | Unavailable | + + + Support + + + + + | Name | Relationship | Address | Phone | + + + + + | Monica Hsu | RONEN | [place], | | | | | [place] [address] | | + + + + + Care Team Providers + +------+ + | Care Abatement Worker Name | Role | Phone | [...] automatically from request for surgery | | [id number] | + + + + + | [...] | | house.Met with Nguyễn Cam community water resource manager | | 01/03/2019Last Assessment & Plan: Patient met with Nguyễn Cam the | | community water resource manager today. | | | |Last Assessment & Plan: | |Patient met with Nguyễn Cam the community water resource manager today. | + + + + + [...] patient to follow up with | | [facility], for outpatient addiction recovery program he | | declines this today as he says he is following up through the [facility] obligated by his chairman president and chief executive officer. I discouraged the use of | [...] Assessment & Plan: Met with behavioral health oracle agile plm consultant, will | | initiate Chantix, recheck in 1 month. | |Last Assessment & Plan: | |Met with behavioral health oracle agile plm consultant, will initiate Chantix, recheck in 1 [...] | | | | [place] | | | | | | [id number] | | | | | | | | +--------+---------+ + + + | 10/11/ | Office | Orthopedic Surgery | Oliver Flowers | | | 2018 | Visit | | MD [address] | | | | | | [address] | | | | | | [place] [address] | | | | | | [phone] | | | | | | | [...] Left: | COOK | | 04/01/ | [id number] | | - [id number]: | | Ureter | [employer] | | 2 | / | | Qty: 1 on 07/14/2019 by | | | Leonor VALLADARES | | | /[id number] | | Alvin Odom MD | | [...] | | Dictated and Signed by: Prem Elizlade MD | | Electronically signed: 08/11/2019 5:31 [...] [facility] | | | | | | at:[phone]. | | | | + + + [...] | | | | | d by [facility]. It has not | | | [...] [address], | REFERENCE LAB | | [place], [place] [address] Saddle Cutter: Yovanny Walsh MD, | [facility] | | Phone: [phone] | | + + + + + + + + | Performing | Address | City/State/Zipcode | Phone Number | | Organization | | | | + + + + + | REFERENCE LAB | [address] | [place] [address] | [phone] | | [facility] | [address] | [place] | [phone] | | [facility] | | [address] | | | - LABORATORY | | [...] + | [facility] | [address] | [place] | [phone] | | [facility] | | [address] | | | - LABORATORY | | [...] | | Total | | | [facility] | | | | | | MEDICAL [...] ST. | [address] | [place] | [phone] | | [facility] | | [address] | | | - LABORATORY | | [...] + | [facility] | [address] | [place], [place] | [phone] | | [facility] | | [address] | | | - LABORATORY | | [...] mL/min/1.73m2 | [facility] | | | PARAGUAYAN | RATE,ESTIMATED mL/min | | MEDICAL | | | | /1.40g8Dwra than 60 | | CENTER - | [...] + | [facility] | [address] | [place], [place] | [phone] | | [facility] | | [address] | | | - LABORATORY | | [...] [address] | [place] | [phone] | | [facility] | | [address] | | | - LABORATORY | | [...] 1.001 - 1.030 | | | | [place], | | | | | | UA, [...] | [employer] | MOD[employer] | [id number] | | [phone] | | Medica | | MEDICAID HMO [...] | | al/Fam | | 1959 | [phone] | [place] [address] | | | lucrecia | | | 7 (Home) | | + +--------+ +--------+ + + | Fawad Dowell | Worker | Self | [birth year] | | NEED ADDRESS | | | s Comp | | 1959 | [phone] | [place] | | | | | | 2 (Home) | [id number] | + +--------+ +--------+ + + Advance Directives Patient has advance care planning documents, and code status on file. For more information, please contact:[facility] [place] [address] + + + + + | Code Status | Date | Date | Comments | | | Activated | Inactivated | | + + + + + | Full Code | 07/14/2019 | 07/14/2019 | | | | 10:45 | 14:48 | | + + + + +
--- OUTSIDE RECORDS SUMMARY | ~2019-08-18 | XMS | Encounter Summary ---
Demographics + + + | Address | [address] | | | [place] [address] | + + + | Home Phone | | + + + | Preferred Language | Unknown | + + + | Marital Status | | + + + | Anglican Affiliation | 1013 | + + + | Race | Unknown | + + + | Ethnic Group | Unknown | + + + Author + + + | Author | [facility] | | | and [place]iraana | + + + | Organization | [facility] | | | and [place] | + + + | Address | Unknown | + + + | Phone | Unavailable | + + + Support + + + + + | Name | Relationship | Address | Phone | + + + + + | Monica Hsu | RONEN | [place], | | | | | [place] [address] | | + + + + + Care Team Providers + +------+ + | Care Paint Laboratory Technician Name | Role | Phone | + +------+ + | Tariq Byers PA-C | PCP | | + +------+ + Encounter Details +--------+ + + + + | Date | Type | Department | Care Team | Description | +--------+ + + + + | 06/23/ | Imaging | [facility] | Provider, | | | 2019 | Exam | MED CTR EXTERNAL | MD Felipa [address] | | | | | IMAGING | [address] | | | | | [phone] | [place] [address] | | +--------+ + + + + [...] Pierce | | | | | | [place] [...] | | | | | [place] [address] | | | | | | [phone] | | | | | | | [...] + + documented in this encounter Results CT Abdomen Pelvis wo Contrast (06/23/2019 0:00 [...]
--- OUTSIDE RECORDS SUMMARY | ~2019-08-18 | XMS | Encounter Summary ---
Demographics + + + | Address | [address] | | | [place] [address] | + + + | Home Phone | | + + + | Preferred Language | Unknown | + + + | Marital Status | | + + + | Baptist Affiliation | 1013 | + + + | Race | Unknown | + + + | Ethnic Group | Unknown | + + + Author + + + | Author | [facility] | | | and Hiraana | + + + | Organization | [facility] | | | and [place] | + + + | Address | Unknown | + + + | Phone | Unavailable | + + + Support + + + + + | Name | Relationship | Address | Phone | + + + + + | Monica Hsu | RONEN | [place], | | | | | [place] [address] | | + + + + + Care Team Providers + +------+ + | Care Waistline Joiner Name | Role | Phone | + [...] + + | 06/23/ | Telephone | [facility] | Alvin Odom | Surgery Appointment; | | 2018 | | [address] | MD [address]ari [address] | Radiology | | | | [place], [place] | [place], [place] | Appointment | | | | [address] | [address] | | | | | [phone] | | | +--------+ + + + [...] [place] | | | | | | [id number] | | | | | | | | +--------+---------+ + + + | 10/11/ | Office | Orthopedic Surgery | Oliver Flowers | | | 2018 | Visit | | MD [address] | | | | | | [address] | | | | | | [place] [address] | | | | | | [phone] | | | | | | | | +--------+---------+ + + + documented as of this encounter Visit Diagnoses Not on filedocumented in this encounter"
--- OUTSIDE RECORDS SUMMARY | ~2019-08-18 | XMS | Encounter Summary ---
Demographics + + + | Address | [address] | | | [place] [address] | + + + | Home Phone | | + + + | Preferred Language | Unknown | + + + | Marital Status | | + + + | Orthodox Affiliation | 1013 | + + + | Race | Unknown | + + + | Ethnic Group | Unknown | + + + Author + + + | Author | [facility] | | | and [place]iraana | + + + | Organization | [facility] | | | and [place]ira[place] | + + + | Address | Unknown | + + + | Phone | Unavailable | + + + Support + + + + + | Name | Relationship | Address | Phone | + + + + + | Monica Hsu | RONEN | [place], | | | | | [place] [address] | | + + + + + Care Team Providers + +------+ + | Care Fringe Maker Name | Role | Phone | + [...] [address] | Hematuria | | | | [place], [place] | [place], [place] | | | | | [address] | [address] | | | | | [phone] | | | +--------+ + + + [...] [place] | | | | | | [address] | | | | | | | | +--------+---------+ + + + | 10/11/ | Office | Orthopedic Surgery | Oliver Flowers | | | 2019 | Visit | | MD [address] | | | | | | [address] | | | | | | [place] [address] | | | | | | [phone] | | | | | | | | +--------+---------+ + + + documented as of this encounter Visit Diagnoses Not on filedocumented in this encounter"
--- OUTSIDE RECORDS SUMMARY | ~2019-08-18 | XMS | Encounter Summary ---
Demographics + + + | Address | [address] | | | [place] [address] | + + + | Home Phone | | + + + | Preferred Language | Unknown | + + + | Marital Status | | + + + | Gnosticism Affiliation | 1013 | + + + | Race | Unknown | + + + | Ethnic Group | Unknown | + + + Author + + + | Author | [facility] | | | and [place]ira[place] | + + + | Organization | [facility] | | | and [place] | + + + | Address | Unknown | + + + | Phone | Unavailable | + + + Support + + + + + | Name | Relationship | Address | Phone | + + + + + | Monica Hsu | RONEN | [place], | | | | | [place] [address] | | + + + + + Care Team Providers + +------+ + | Care Qual Research Manager Name | Role | Phone | [...] | | | | hematuria | | [address] Phone: | | | | | Procedures | | [phone] | | | | | [place] | | Fax: | | | | | CYSTO/URETER | | [phone] | | | | | [place] | [...] + + | 07/14/ | Hospital | [facility] | Alvin Odom | Kidney stone on left | | 2019 | Encounter | MED CTR OR INTRA OP | MD Shayy Pierce | side; Gross | | | | [address] | [place] | hematuria | | | | [place], [place] | [address] | | | | | [address] | | | | | | [phone] | | | +--------+ + + + [...] lasts more than a day, a fever [id number] (38 C), or trouble urinating. Date Last Reviewed: 11/09/201619997627-2996 [employer] [address] [place] [address]. All righ ts reserved. This information is [...] You can't be awakened Date Last Reviewed: 08/26/201619998722-9164 [employer] [address] [place] [address]. All righ ts reserved. This information is [...] | | | | | [place] [address] | | | | | | [phone] | | | | | | | [...] [facility] | | | | | | at:[phone]. | | | | + + + [...] at: 01 - Dany Singh [address] [facility], | REFERENCE LAB | | [place], [place] [id number] Thread Machine Operator: Yovanny Walsh MD, | [facility] | | Phone: [phone] | | + + + + + + + + | Performing | Address | City/State/Zipcode | Phone Number | | Organization | | | | + + + + + | REFERENCE LAB | [address] [facility] [address] | [place] [address] | [phone] | | [facility] | Drive [...] + | [facility] | [address] | [place] | [phone] | | [facility] | | [address] | | | - LABORATORY | | [...] [address] | [place] | [phone] | | [facility] | | [address] | | | - LABORATORY | | [...] [address] | [place] | [phone] | | [facility] | | [address] | | | - LABORATORY | | [...] 19 7:24 | | | | | [facility] 07/14/19 at 0730, For 1 dose, | | PDT | | | | | Pre-op | | | | | | + +--------+ + +------+------+ + +---+ | | | + +---+ | acetaminophen (TYLENOL) tablet | | | 1,000 mg 1,000 mg, Oral, EVERY 8 | | | HOURS (3 times per day), First | | | dose on [facility] 07/14/19 at 1400, Start | | | 8 hours after pre-op dose., | | | Post-op/Phase II | | + +---+ | | | + +---+ | albuterol-ipratropium 2.5-0.5 | | | mg/3 mL nebulizer solution 3 mL | | | 3 mL, Nebulization, ONCE PRN, | | | Wheezing, Starting [facility] 07/14/19 at | | | 0703, For 1 dose, Pre-op | | + +---+ | | | + +---+ | albuterol-ipratropium 2.5-0.5 | | | mg/3 mL nebulizer solution 3 mL | | | 3 mL, Nebulization, ONCE PRN, | | | Wheezing, Shortness of Breath, | | | Starting [facility] 07/14/19 at 0851, For | | | 1 dose, Recovery/Phase I | | + +---+ | | | + +---+ + +-------+ +--------+---+---+ | ciprofloxacin (CIPRO) tablet | Given | 07/14/20 | 500 mg | | | | 500 mg 500 mg, Oral, ONCE, [facility] | | 19 7:25 | | | [...] | | | | | | longer, rkdbdp-iob-usjxq use of | | | | | [...] One week or longer, | | | igjtrt-ztw-lwxsa use of at least | | | [...] Intravenous, PRN, Shivering, | | | Starting [facility] 07/14/19 at 0851, For | | | [...] | | | | | | Starting [facility] 07/14/19 at 1044, | | | | [...]
--- OUTSIDE RECORDS SUMMARY | ~2019-08-18 | XMS | Encounter Summary ---
Demographics + + + | Address | [address] | | | [place] [address] | + + + | Home Phone | | + + + | Preferred Language | Unknown | + + + | Marital Status | | + + + | Buddhist Affiliation | 1013 | + + + | Race | Unknown | + + + | Ethnic Group | Unknown | + + + Author + + + | Author | [facility] | | | and [place]iraana | + + + | Organization | [facility] | | | and [place] | + + + | Address | Unknown | + + + | Phone | Unavailable | + + + Support + + + + + | Name | Relationship | Address | Phone | + + + + + | Monica Hsu | RONEN | [place], | | | | | [place] [address] | | + + + + + Care Team Providers + +------+ + | Care Regrader Name | Role | Phone | + [...] [address] | | | | | [place], [place] | [place], [place] | | | | | [address] | [address] | | | | | [phone] | | | +--------+ + + + [...] [place] | | | | | | [address] | | | | | | | | +--------+---------+ + + + | 10/11/ | Office | Orthopedic Surgery | Oliver Flowers | | | 2019 | Visit | | MD [address] | | | | | | [address] | | | | | | [place] [address] | | | | | | [phone] | | | | | | | | +--------+---------+ + + + documented as of this encounter Visit Diagnoses Not on filedocumented in this encounter"
--- OUTSIDE RECORDS SUMMARY | ~2019-08-18 | XMS | Encounter Summary ---
Demographics + + + | Address | [address] | | | [place] [address] | + + + | Home Phone | | + + + | Preferred Language | Unknown | + + + | Marital Status | | + + + | Synagogue Affiliation | 1013 | + + + | Race | Unknown | + + + | Ethnic Group | Unknown | + + + Author + + + | Author | [facility] | | | and [place]ira[place] | + + + | Organization | [facility] | | | and [place] | + + + | Address | Unknown | + + + | Phone | Unavailable | + + + Support + + + + + | Name | Relationship | Address | Phone | + + + + + | Monica Hsu | RONEN | [place], | | | | | [place] [address] | | + + + + + Care Team Providers + +------+ + | Care Application Internship Name | Role | Phone | + [...] + + | 06/29/ | Office | [facility] | Alvin Odom | Kidney stone on left | | 2019 | Visit | [address] | MD [address]ari [address] | side (Primary Dx); | | | | [place], [place] | [place], [place] | Gross hematuria | | | | [address] | [address] | | | | | [phone] | | | +--------+---------+ + + + [...] July 14, 2019 at 10:45 AM at [facility]. Please report to the Surgery and Procedure [...] CBC and BMP. Please go to the [facility] today to complete these tests. Call us at [phone] with any questions. [x] Pain management booklet provided to patient. documented in this encounter Progress Notes Alvin Odom MD - 06/29/2019 7855 PDT Chief Complaint Patient presents with Follow-up [...] UA, POC Negative Negative, 100 mg/dL Specific [place], UA, POC 1.025 1.001 - 1.030 Blood, [...] have not thoroughly proofread this note, and laborer drying department errors are very likely to occur. CC: Tariq Byers PA-C documented in thi s encounter Plan of Treatment +--------+---------+ + + + | Date | Type | Specialty | Care Team | Description | +--------+---------+ + + + | 10/03/ | Office | Urology | Alvin Odom | | | 2018 | Visit | | MD Kari [address] [place] [address] | | | | | | [place], [place] | | | | | | [address] | | | | | | | | +--------+---------+ + + + | 10/11/ | Office | Orthopedic Surgery | Oliver Flowers | | | 2018 | Visit | | MD [address] | | | | | | [address] [place] | | | | | | [place] [address] | | | | | | [phone] | | | | | | | [...]
--- OUTSIDE RECORDS SUMMARY | ~2019-08-18 | XMS | Encounter Summary ---
Demographics + + + | Address | [address] | | | [place] [address] | + + + | Home Phone | | + + + | Preferred Language | Unknown | + + + | Marital Status | | + + + | Yarsani Affiliation | 1013 | + + + | Race | Unknown | + + + | Ethnic Group | Unknown | + + + Author + + + | Author | [facility] | | | and [place]iraana | + + + | Organization | [facility] | | | and [place] | + + + | Address | Unknown | + + + | Phone | Unavailable | + + + Support + + + + + | Name | Relationship | Address | Phone | + + + + + | Monica Hsu | RONEN | [place], | | | | | [place] [address] | | + + + + + Care Team Providers + +------+ + | Care Joiner Helper Name | Role | Phone | + [...] | | | | hematuria | | [address] Phone: | | | | | Procedures | | [phone] | | | | | [place] | | Fax: | | | | | CYSTO/URETER | | [phone] | | | | | [place] | [...] +--------+--------+ + + + + Encounter Details +--------+---------+ + + + | Date | Type | Department | Care Team | Description | +--------+---------+ + + + | 07/14/ | Surgery | [facility] | | CYSTOSCOPY Left | | 2018 | | MED CTR OR INTRA OP | | URETEROSCOPY W/ | | | | [address] | | LASER lithotriopsy | | | | [place], [place] | | and stent PLACEMENT | | | | [address] | | | | | | [phone] | | | +--------+---------+ + + + [...] lasts more than a day, a fever [id number] (38 C), or trouble urinating. Date Last Reviewed: 11/09/201619995854-2789 The [employer] [address] [place] [address]. All righ ts reserved. This information is [...] You can't be awakened Date Last Reviewed: 08/26/201619994521-8019 [employer] [address] [place] [address]. All righ ts reserved. This information is [...] | | | | | [place] [address] | | | | | | [phone] | | | | | | | [...] + documented in this encounter Results [place] Pyelogram Retrograde (07/14/2019 10:35 PDT) + [...] [facility] | | | | Analysis contact Liliana | | | | | | at:[phone]. | | | | + + + [...] | | | | | d by [facility]. It has not | | | | [...] + + | Performed at: 01 - [facility] [address], | REFERENCE LAB | | [place], [place] [id number] Revenue Cycle Administrator: Yovanny Walsh MD, | [facility] | | Phone: [phone] | | + + + + + + + + | Performing | Address | City/State/Zipcode | Phone Number | | Organization | | | | + + + + + | REFERENCE LAB | [address] | [place] [address] | [phone] | | [facility] | Drive [...] ST. | [address] | [address] | [phone] | | [facility] | | [address] | | | - LABORATORY | | [...] ST. | [address] | [address] | [phone] | | [facility] | | [address] | | | - LABORATORY | | [...] + + | [facility] | [address] | [address] | [phone] | | [facility] | | [address] | | | - LABORATORY | | [...] 19 7:24 | | | | | [facility] 07/14/19 at 0730, For 1 dose, | | PDT | | | | | Pre-op | | | | | | + +--------+ + +------+------+ + +---+ | | | + +---+ | acetaminophen (TYLENOL) tablet | | | 1,000 mg 1,000 mg, Oral, EVERY 8 | | | HOURS (3 times per day), First | | | dose on [facility] 07/14/19 at 1400, Start | | | 8 hours after pre-op dose., | | | Post-op/Phase II | | + +---+ | | | + +---+ | albuterol-ipratropium 2.5-0.5 | | | mg/3 mL nebulizer solution 3 mL | | | 3 mL, Nebulization, ONCE PRN, | | | Wheezing, Starting [facility] 07/14/19 at | | | 0703, For 1 dose, Pre-op | | + +---+ | | | + +---+ | albuterol-ipratropium 2.5-0.5 | | | mg/3 mL nebulizer solution 3 mL | | | 3 mL, Nebulization, ONCE PRN, | | | Wheezing, Shortness of Breath, | | | Starting [facility] 07/14/19 at 0851, For | | | 1 dose, Recovery/Phase I | | + +---+ | | | + +---+ + +-------+ +--------+---+---+ | ciprofloxacin (CIPRO) tablet | Given | 07/14/20 | 500 mg | | | | 500 mg 500 mg, Oral, ONCE, [facility] | | 19 7:25 | | | [...] | | | | | | longer, fazfru-gyo-fnklc use of | | | | | [...] | | | For HR <50, Starting [facility] 07/14/19 | | | at 0851, For [...] DBP > 100, | | | Starting [facility] 07/14/19 at 0851, Hold | | | [...] One week or longer, | | | mhbdqb-kqw-niett use of at least | | | [...] day), | | | First dose on [facility] 07/14/19 at 1700, | | | If [...] 19 11:33 | | | | | [facility] 07/14/19 at 1100, For 1 dose, | [...] | | | | CONTINUOUS, Starting [facility] 07/14/19 | Anesthes | PDT | | [...] Intravenous, PRN, Shivering, | | | Starting [facility] 07/14/19 at 0851, For | | | [...] | | | | | | Starting [facility] 07/14/19 at 1044, | | | | [...] history of PONV, Starting | | | [facility] 07/14/19 at 0703, PRN for adult | [...]
--- OUTSIDE RECORDS SUMMARY | ~2019-08-18 | XMS | Encounter Summary ---
Demographics + + + | Address | [address] | | | [place] [address] | + + + | Home Phone | | + + + | Preferred Language | Unknown | + + + | Marital Status | | + + + | Rastafarian Affiliation | 1013 | + + + | Race | Unknown | + + + | Ethnic Group | Unknown | + + + Author + + + | Author | [facility] | | | and [place] | + + + | Organization | [facility] | | | and [place] | + + + | Address | Unknown | + + + | Phone | Unavailable | + + + Support + + + + + | Name | Relationship | Address | Phone | + + + + + | Monica Hsu | RONEN | [place], | | | | | [place] [address] | | + + + + + Care Team Providers + +------+ + | Care Compliance Assistant Name | Role | Phone | + +------+ + | Tariq Byers PA-C | PCP | | + +------+ + Reason for Visit + + + | Reason | Comments | + + + | New Patient | Lower urinary tract symptoms and history of kidney stones. | + + + Evaluate & Treat (Routine) +--------+--------+ + + + + | Status | Reason | Specialty | Diagnoses / | Referred By | Referred To | | | | | Procedures | Contact | Contact | +--------+--------+ + + + + | Closed | | Urology | Diagnoses | [place], | [facility] | | | | | Lower | Tariq, | Urology [address] | | | | | urinary | PA-C [address] | | | | | tract | [place] | [place], | | | | | symptoms | [facility] | [place] [address] | | | | | History of | [place], [place] | Phone: | | | | | kidney | [address] | [phone] | | | | | stones | Phone: | Fax: | | | | | | [phone] | [phone] | | | | | | Fax: | | | | | | | [phone] | | +--------+--------+ + + + + Encounter Details +--------+---------+ + + + | Date | Type | Department | Care Team | Description | +--------+---------+ + + + | 06/22/ | Office | [facility] | Alvin Odom | Abnormal urinalysis | | 2019 | Visit | [address] | MD Kari [address] | (Primary Dx); Kidney | | | | [place], [place] | [place], [place] | stones; Kidney | | | | [address] | [address] | stone on left side | | | | [phone] | | | +--------+---------+ + + + [...] + + + | Blood Pressure | 150/84 | 06/22/20191615 PDT | + + + + | Pulse | 78 | 06/22/20191615 PDT | + + + + | Temperature | - | - | + + + + | Respiratory Rate | 18 | 06/22/20191615 PDT | + + + + | Oxygen Saturation | - | - | + + + + | Inhaled Oxygen | - | - | | Concentration | | | + + + + | Weight | 85.1 kg (187 lb 9.8 | 06/22/2019 1616 PDT | | | oz) | | + + + + | Height | 170.2 cm (5' 7") | 06/22/2019 1616 PDT | + + + + | Body Mass Index | 29.38 | 06/22/2019 1616 PDT | + + + + documented in this encounter Progress Notes Alvin Odom MD - 06/22/2019 1630 PDT Chief Complaint Patient presents with New Patient Lower urinary tract symptoms and history of kidney stones. HPI Fawad Dowell is a 58 y.o. male patient of Tariq Byers PA-C here today for eval uation of lower urinary tract symptoms and history of kidney stones. Presented to [facility] in Oct 2018 with acute left flank pain. At that time diagnos ed with 17mm stone in the renal pelvis. Has not followed but due to legal issues(has been in and out of group home) Has had intermittent left testicle, abdominal and flank pain. Pain is described as achy an d can last hours at a time. Activity such as bending over and moving can make the pain wors e. Only pain medicine makes it better. No nausea or vomiting, no gross hematuria Assessment Fawad was seen today for new patient. Diagnoses and all orders for this visit: Abnormal urinalysis - POCT Urinalysis - Urinalysis, Microscopic Only, with Culture if Indicated Kidney stones - CT Renal Stone Wo Contrast; Future Kidney stone on left side - Basic Metabolic Panel; Future - CBC w/ Auto Differential; Future - Cancel: Case Request - OR/ENDO/ASC/OB: CYSTOSCOPY Left URETEROSCOPY W/ LASER lithotri psy and stent Plan Recommend patient undergo CT scan as it has been over 8 months since his prior CT scan. We discussed that his stone is quite large. If we were to approach this using ureteroscopy an d may require a staged procedure. We discussed risks including pain, bleeding, infection, t rauma to the urethra, trauma to the bladder, trauma to the ureter, ureteral perforation, ure teral stricture, renal hematoma and need for further procedures. [...] For 7 d ays, Disp: , Rfl: ROS REVIEW OF SYSTEMS: [] Marked All Negative Constitutional Symptoms: [] Fever [] Chills [] Headache [] Change in appetite [] Change in weight [] Change in energy [] Other: Neurological: [] Tremors [] Dizzy Spells [] Numbness/Tingling [] Seizures [] Other: Endocrine: [] Excessive thirst [] Too hot [] Too cold [] Tired/Sluggish Gastrointestinal: [x] Abdominal pain [] Nausea/Vomiting [x] Indigestion/heartburn [x] Change in s tool size [x] Change in stool shape [] Change in stool color [] Pain with swallo wing [] Other: Cardiovascular: [] Chest Pain [] Rapid heart rate [] High blood pressure [] Other: Integumentary: [] Skin rash [] Boils [] Persistent itch [] Other: Musculoskeletal: [x] Neck Pain [x] Joint swelling/pain [x] Back pain [x] Bone pain [] Other: Respiratory: [] Wheezing [] Frequent cough [] Shortness of breath [] Other: Hematologic/Lymphatic: [] Swollen glands [] Blood clotting issues [] Prior blood transfusions []Other: Psychologic: Are you generally satisfied with your life? yes Do you feel severely depressed? no Have you considered suicide? no Habits: Do you smoke? yes IPSS (International Prostate Symptom Score) 0=0 - Not at All 1=1 - Less than 1 in 5 times 2=2 - Less than half the time 3=3 - About half the time 4=4 - More than half the time 5=5 - Almost alwyas IPSS (INTERNATIONAL PROSTATE SYMPTOM SCORE) 06/22/2019 1. Incomplete Emptying - How often have you had the sensation of not emptying your bladder? 3 2. Frequency - How often have you had to urinate less than every two hours? 5 3. Intermittency - How often have you found you stopped and started again several times whe n you urinated? 3 4. Urgency - How often have you found it difficult to postpone urination? 3 5. Weak Stream - How often have you had a weak urinary stream? 4 6. Straining - How often have you had to strain to start urination? 5 7. Nocturia - How many times did you typically get up at night to urinate? 2 Total: 25 Quality of Life Due to Urinary Symptoms 0=0 - Delighted 1=1 - Pleased 2=2 - Mostly satisfied 3=3 - Mixed 4=4 - Mostly dissatisfied 5=5 - Unhappy 6=6 - Terrible QUALITY OF LIFE (URINARY) 06/22/2019 If you were to spend the rest of your life with your urinary condition just the way it is n ow, how would you feel about that? 6 Objective BP 150/84 | Pulse 78 | Resp 18 | Ht 1.702 m (5' 7") | Wt 85.1 kg (187 lb 9.8 oz) | BMI 29.38 kg/m General Appearance: Alert, cooperative, no distress, appears stated age, appears dishevele d Head: Normocephalic, without obvious abnormality, atraumatic Eyes: conjunctiva/corneas clear, EOM's intact Throat: Lips, mucosa, and tongue normal; no gross deformities, mmm Neck: Supple, symmetrical, no adenopathy Lungs: Regular, unlabored breathing MS No CVA tenderness, no spinal tenderness, no scoliosis present Abdomen: Soft, non-tender, no masses Extremities: Extremities normal, atraumatic, no cyanosis, clubbing, or edema Pulses: Radial pulses 2+ and symmetric Skin: Warm and dry Lymph nodes: Cervical and supraclavicular nodes normal Neurologic: Gait normal, CN 2-12 grossly intact; Strength and sensation grossly normal in b ilateral upper and lower extremities Data: Images not available CT scan November 03, [...] UA, POC Negative Negative, 100 mg/dL Specific [place], UA, POC 1.025 1.001 - 1.030 Blood, [...] have not thoroughly proofread this note, and computer programming manager errors are very likely to occur. CC: Tariq Byers PA-C documented in thi s encounter Plan of Treatment +--------+---------+ + + + | Date | Type | Specialty | Care Team | Description | +--------+---------+ + + + | 10/03/ | Office | Urology | Alvin Odom | | | 2018 | Visit | | MD Kari [address] [place] [address] | | | | | | [place], [place] | | | | | | [id number] | | | | | | | | +--------+---------+ + + + | 10/11/ | Office | Orthopedic Surgery | Oliver Flowers | | | 2018 | Visit | | MD Thomas [address] | | | | | | [address] | | | | | | [place] [address] | | | | | | [phone] | | | | | | | [...] + + documented in this encounter Results CBC w/ Auto Differential (06/29/2019 17:19 PDT) [...] | | | | | M/uL | [facility] | | | | | | MEDICAL | | | | | | CENTER - | | | | | | LABORATORY | | + + + + + + | Hemoglobin | 14.9 | 13.5 - 18.0 | [facility] | | | | | g/dL | [facility] | | | | [...] | | Count | | | [facility] | | [...] | | | Neutrophils | | | [facility] | | [...] | Monocytes | | K/uL | [facility] | [...] [address] | [place] | [phone] | | [facility] | | [address] | | | - LABORATORY | | [...] | 0.99 | 0.70 - 1.30 | [facility] | | | | | mg/dL | [facility] | | | | | | MEDICAL | | | | | | CENTER - | | | | | | LABORATORY | | + + + + + + | eGFR if not | >60Comment: GLOMERULAR | >=60 | [facility] | | | | FILTRATION | mL/min/1.73m2 | [facility] | | | [place] | RATE,ESTIMATED mL/min | | MEDICAL | | | | /1.17u3Gdqy than 60 | | CENTER - | [...] | | | | | mg/dL | [facility] | | | | | | [...] | + + + + + | [facility] [facility] | [address] | [place] | [phone] | | [facility] | | [address] | | | - LABORATORY | | | | + + + + + Urinalysis, Microscopic Only, with Culture [...] | | COMMENT | Indicated | | [facility] | | | | | | [...] [address] | [place] | [phone] | | [facility] | | [address] | | | - LABORATORY | | [...] 1.001 - 1.030 | | | | [place], | | | | | | UA, [...] + | Diagnosis | + + | Abnormal urinalysis - Primary Other nonspecific finding on examination of urine | + + | Kidney stones Calculus of kidney | + + | Kidney stone on left side Calculus of kidney | + + documented in this encounter
--- OUTSIDE RECORDS SUMMARY | ~2019-08-18 | XMS | Encounter Summary ---
Demographics + + + | Address | [address] | | | [place] [address] | + + + | Home Phone | | + + + | Preferred Language | Unknown | + + + | Marital Status | | + + + | Advent Affiliation | 1013 | + + + | Race | Unknown | + + + | Ethnic Group | Unknown | + + + Author + + + | Author | [facility] | | | and [place] | + + + | Organization | [facility] | | | and [place] | + + + | Address | Unknown | + + + | Phone | Unavailable | + + + Support + + + + + | Name | Relationship | Address | Phone | + + + + + | Monica Hsu | RONEN | [place], | | | | | [place] [address] | | + + + + + Care Team Providers + +------+ + | Care Legal Writing Professor Name | Role | Phone | + +------+ + | Tariq Byers PA-C | PCP | | + +------+ + Encounter Details +--------+ + + + + | Date | Type | Department | Care Team | Description | +--------+ + + + + | 08/11/ | [facility] | [facility] | Oliver Flowers | Bilateral shoulder | | 2019 | Encounter | [facility] [address] | MD Thomas [address] | pain, unspecified | | | | [address] [place] | [address] [place] | chronicity | | | | [place], [place] | [place] [address] | | | | | [address] | [phone] | | | | | [phone] | | | +--------+ + + + [...] | | | | | [place] [address] | | | | | | [phone] | | | | | | | [...]
--- OUTSIDE RECORDS SUMMARY | ~2019-08-18 | XMS | Encounter Summary ---
Demographics + + + | Address | [address] | | | [place] [address] | + + + | Home Phone | | + + + | Preferred Language | Unknown | + + + | Marital Status | | + + + | Church Affiliation | 1013 | + + + | Race | Unknown | + + + | Ethnic Group | Unknown | + + + Author + + + | Author | [facility] | | | and [place]iraana | + + + | Organization | [facility] | | | and [place] | + + + | Address | Unknown | + + + | Phone | Unavailable | + + + Support + + + + + | Name | Relationship | Address | Phone | + + + + + | Monica Hsu | RONEN | [place], | | | | | [place] [address] | | + + + + + Care Team Providers + +------+ + | Care Automatic Bandsaw Tender Name | Role | Phone | + [...] + + | 07/26/ | Office | [facility] | Alvin Odom | Kidney stones | | 2019 | Visit | [address] | MD Kari [address] | (Primary Dx) | | | | [place] | [place], [place] | | | | | [address] | [address] | | | | | [phone] | | | +--------+---------+ + + + [...] The patient tolerated the procedure well. Assessment Fawda was seen today for post op. Diagnoses [...] PLACEMENT; Surgeo n: Alvin Odom MD; Location: [facility] MAIN OR VASECTOMY Family History: Family History [...] have not thoroughly proofread this note, and house officer errors are very likely to occur. CC: Tariq Byers PA-C documented in thi s encounter Plan of Treatment +--------+---------+ + + + | Date | Type | Specialty | Care Team | Description | +--------+---------+ + + + | 10/03/ | Office | Urology | Alvin Odom | | | 2019 | Visit | | MD Kari [address] [place] [address] | | | | | | [place] | | | | | | [address] | | | | | | | | +--------+---------+ + + + | 10/11/ | Office | Orthopedic Surgery | Oliver Flowers | | | 2018 | Visit | | MD [address] | | | | | | [address] [place] | | | | | | [place] [address] | | | | | | [phone] | | | | | | | [...]
--- OUTSIDE RECORDS SUMMARY | ~2019-08-18 | XMS | Encounter Summary ---
Demographics + + + | Address | [address] | | | [place] [address] | + + + | Home Phone | | + + + | Preferred Language | Unknown | + + + | Marital Status | | + + + | Taoism Affiliation | 1013 | + + + | Race | Unknown | + + + | Ethnic Group | Unknown | + + + Author + + + | Author | [facility] | | | and [place] | + + + | Organization | [facility] | | | and [place] | + + + | Address | Unknown | + + + | Phone | Unavailable | + + + Support + + + + + | Name | Relationship | Address | Phone | + + + + + | Monica Hsu | RONEN | [place], | | | | | [place] [address] | | + + + + + Care Team Providers + +------+ + | Care Global Sales Manager Name | Role | Phone | [...] | | | | hematuria | | [address] Phone: | | | | | Procedures | | [phone] | | | | | [place] | | Fax: | | | | | CYSTO/URETER | | [phone] | | | | | [place] | [...] W/ | | | | [address] | | LASER lithotriopsy | | | | [place], [place] | | and stent PLACEMENT | | | | [address] | | | | | | [phone] | | | +--------+---------+ + + + [...] lasts more than a day, a fever [id number] (38 C), or trouble urinating. Date Last Reviewed: 11/09/201619996760-1839 [employer]. [address] [place] [address]. All righ ts reserved. This information is [...] You can't be awakened Date Last Reviewed: 08/26/201619992566-3306 [employer]. [address] [place] [address]. All righ ts reserved. This information is [...] | | | | | [place] [address] | | | | | | [phone] | | | | | | | [...] Liliana | | | | | | at:[phone]. | | | | + + + [...] + + | Performed at: 01 - [facility] [address], | REFERENCE LAB | | [place], [place] [id number] Slide Machine Tender: Yovanny Walsh MD, | [facility] | | Phone: [phone] | | + + + + + + + + | Performing | Address | City/State/Zipcode | Phone Number | | Organization | | | | + + + + + | REFERENCE LAB | [address] | [place] [address] | [phone] | | [facility] | Drive [...] | bulin Ratio | | | [facility] | | [...] [address] | [place] | [phone] | | [facility] | | [address] | | | - LABORATORY | | [...] [address] | [place] | [phone] | | [facility] | | [address] | | | - LABORATORY | | [...] + | [address] | [address] | [place] | [phone] | | [facility] | | [address] | | | - LABORATORY | | [...] 19 7:24 | | | | | [facility] 07/14/19 at 0730, For 1 dose, | | PDT | | | | | Pre-op | | | | | | + +--------+ + +------+------+ + +---+ | | | + +---+ | acetaminophen (TYLENOL) tablet | | | 1,000 mg 1,000 mg, Oral, EVERY 8 | | | HOURS (3 times per day), First | | | dose on [facility] 07/14/19 at 1400, Start | | | 8 hours after pre-op dose., | | | Post-op/Phase II | | + +---+ | | | + +---+ | albuterol-ipratropium 2.5-0.5 | | | mg/3 mL nebulizer solution 3 mL | | | 3 mL, Nebulization, ONCE PRN, | | | Wheezing, Starting [facility] 07/14/19 at | | | 0703, [...] | | | | | | longer, wkepwy-uch-yvsbr use of | | | | | [...] | | | For HR <50, Starting [facility] 07/14/19 | | | at 0851, [...] DBP > 100, | | | Starting [facility] 07/14/19 at 0851, Hold | | [...] One week or longer, | | | xqkiqz-gyo-eambx use of at least | | | [...] day), | | | First dose on [facility] 07/14/19 at 1700, | | | [...] 19 11:33 | | | | | [facility] 07/14/19 at 1100, For 1 dose, [...] history of PONV, Starting | | | [facility] 07/14/19 at 0703, PRN for adult [...]
--- OUTSIDE RECORDS SUMMARY | ~2019-08-18 | XMS | Encounter Summary ---
Demographics + + + | Address | [address] | | | [place] [address] | + + + | Home Phone | | + + + | Preferred Language | Unknown | + + + | Marital Status | | + + + | Yazidism Affiliation | 1013 | + + + | Race | Unknown | + + + | Ethnic Group | Unknown | + + + Author + + + | Author | [facility] | | | and [place] | + + + | Organization | [facility] | | | and [place] | + + + | Address | Unknown | + + + | Phone | Unavailable | + + + Support + + + + + | Name | Relationship | Address | Phone | + + + + + | Monica Hsu | RONEN | [place], | | | | | [place] [address] | | + + + + + Care Team Providers + +------+ + | Care Environmental Science Technician Name | Role | Phone | + +------+ + | Tariq Byers PA-C | PCP | | + +------+ + Reason for Visit + + + | Reason | Comments | + + + | Surgery Appointment | | + + + Encounter Details +--------+ + + + + | Date | Type | Department | Care Team | Description | +--------+ + + + + | 07/05/ | Telephone | [facility] | Alvin Odom | Surgery Appointment | | 2019 | | [address] | MD [address] | | | | | [place], [place] | [place], [place] | | | | | [address] | [address] | | | | | [phone] | | | +--------+ + + + [...] [place] | | | | | | [address] | | | | | | | | +--------+---------+ + + + | 10/11/ | Office | Orthopedic Surgery | Oliver Flowers | | | 2019 | Visit | | MD [address] | | | | | | [address] | | | | | | [place] [address] | | | | | | [phone] | | | | | | | | +--------+---------+ + + + documented as of this encounter Visit Diagnoses Not on filedocumented in this encounter"
--- OUTSIDE RECORDS SUMMARY | ~2019-08-18 | XMS | Encounter Summary ---
Demographics + + + | Address | [address] | | | [place] [address] | + + + | Home Phone | | + + + | Preferred Language | Unknown | + + + | Marital Status | | + + + | Holiness Affiliation | 1013 | + + + | Race | Unknown | + + + | Ethnic Group | Unknown | + + + Author + + + | Author | [facility] | | | and [place] | + + + | Organization | [facility] | | | and [place] | + + + | Address | Unknown | + + + | Phone | Unavailable | + + + Support + + + + + | Name | Relationship | Address | Phone | + + + + + | Monica Hsu | RONEN | [place], | | | | | [place] [address] | | + + + + + Care Team Providers + +------+ + | Care Gate Tender Name | Role | Phone | [...] Urology | Diagnoses | [place], | [facility] | | | | | Lower | Tariq, | Urology [address] | | | | | urinary | PA-C [address] | | | | | tract | [place] | [place], | | | | | symptoms | [facility] | [place] [address] | | | | | History of | [place], [place] | Phone: | | | | | kidney | [address] | [phone] | | | | | stones | Phone: | Fax: | | | | | | [phone] | [phone] | | | | | | Fax: | | | | | | | [phone] | | +--------+--------+ + + + + Encounter Details +--------+---------+ + + + | Date | Type | Department | Care Team | Description | +--------+---------+ + + + | 06/22/ | Office | [facility] | Alvin Odom | Abnormal urinalysis | | 2019 | Visit | [address] | MD [address] | (Primary Dx); Kidney | | | | [place], [place] | [place], [place] | stones; Kidney | | | | [address] | [address] | stone on left side | | | | [phone] | | | +--------+---------+ + + + [...] and history of kidney stones. Presented to [facility] in Oct 2018 with acute left flank pain. At that time diagnos ed with 17mm stone in the renal pelvis. Has not followed but due to legal issues(has been in and out of detention) Has had intermittent left testicle, abdominal and [...] UA, POC Negative Negative, 100 mg/dL Specific [place], UA, POC 1.025 1.001 - 1.030 Blood, [...] have not thoroughly proofread this note, and fur finisher errors are very likely to occur. CC: Tariq Byers PA-C documented in thi s encounter Plan of Treatment +--------+---------+ + + + | Date | Type | Specialty | Care Team | Description | +--------+---------+ + + + | 10/03/ | Office | Urology | Alvin Odom | | | 2018 | Visit | | MD Kari [address] [place] [address] | | | | | | [place], [place] | | | | | | [id number] | | | | | | | | +--------+---------+ + + + | 10/11/ | Office | Orthopedic Surgery | Oliver Flowers | | | 2018 | Visit | | MD [address] | | | | | | [address] | | | | | | [place] [address] | | | | | | [phone] | | | | | | | [...] [address] | [place] | [phone] | | [facility] | | [address] | | | - LABORATORY | | [...] | 0.99 | 0.70 - 1.30 | [facility] | | | | | mg/dL | [facility] | | | | | | MEDICAL | | | | | | CENTER - | | | | | | LABORATORY | | + + + + + + | eGFR if not | >60Comment: GLOMERULAR | >=60 | [facility] | | | | FILTRATION | mL/min/1.73m2 | [facility] | | | HONDURAN | RATE,ESTIMATED mL/min | | MEDICAL | | | | /1.23l8Yrmt than 60 | | CENTER - | [...] [address] | [place] | [phone] | | [facility] | | [address] | | | - LABORATORY | | [...] [address] | [place] | [phone] | | [facility] | | [address] | | | - LABORATORY | | [...] 1.001 - 1.030 | | | | [place], | | | | | | UA, [...]
--- OUTSIDE RECORDS SUMMARY | ~2019-08-18 | XMS | Encounter Summary ---
Demographics + + + | Address | [address] | | | [place] [address] | + + + | Home Phone | | + + + | Preferred Language | Unknown | + + + | Marital Status | | + + + | Sikhism Affiliation | 1013 | + + + | Race | Unknown | + + + | Ethnic Group | Unknown | + + + Author + + + | Author | [facility] | | | and [place]ira[place] | + + + | Organization | [facility] | | | and [place] | + + + | Address | Unknown | + + + | Phone | Unavailable | + + + Support + + + + + | Name | Relationship | Address | Phone | + + + + + | Monica Hsu | RONEN | [place], | | | | | [place] [address] | | + + + + + Care Team Providers + +------+ + | Care Kitchen Utility Associate Name | Role | Phone | + [...] [address] | | | | | [place], [place] | [place], [place] | | | | | [address] | [address] | | | | | [phone] | | | +--------+ + + + [...] [place] | | | | | | [address] | | | | | | | | +--------+---------+ + + + | 10/11/ | Office | Orthopedic Surgery | Oliver Flowers | | | 2019 | Visit | | MD [address] | | | | | | [address] | | | | | | [place] [address] | | | | | | [phone] | | | | | | | | +--------+---------+ + + + documented as of this encounter Visit Diagnoses Not on filedocumented in this encounter"
--- OUTSIDE RECORDS SUMMARY | ~2019-08-18 | XMS | Encounter Summary ---
Demographics + + + | Address | [address] | | | [place] [address] | + + + | Home Phone | | + + + | Preferred Language | Unknown | + + + | Marital Status | | + + + | Quaker Affiliation | 1013 | + + + | Race | Unknown | + + + | Ethnic Group | Unknown | + + + Author + + + | Author | [facility] | | | and [place] | + + + | Organization | [facility] | | | and [place] | + + + | Address | Unknown | + + + | Phone | Unavailable | + + + Support + + + + + | Name | Relationship | Address | Phone | + + + + + | Monica Hsu | RONEN | [place], | | | | | [place] [address] | | + + + + + Care Team Providers + +------+ + | [employer] Consultant Name | Role | Phone | + [...] | [facility] | MD [address] | | | | | IMAGING | [address] | | | | | [phone] | [place] [address] | | +--------+ + + + + [...] | | | | | [place] [address] | | | | | | [phone] | | | | | | | [...]
[~2019-08-18 08:34] MED LIST: FLOMAX0.4 MG PO; MOBIC15 MG PO
--- OUTSIDE RECORDS SUMMARY | 2019-08-18 08:36 | XMS ---
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 Care History Medical/Surgical 06/01/2019 [facility] - [facility] RECEIVED CASE MANAGEMENT REFERRAL-NO PCP. - CHW CALLED PATIENT- NUMBER IS NOT A GOOD CONTACT NUMBER FOR PATIENT. - CHW SENT NO PCP LETTER TO PATIENT. - PLEASE HAVE PATIENT PROVIDE VALID CONTACT NUMBER E.D. VISIT COUNT (12 MO.) 1 [facility] TOTAL 4 NOTE: Visits indicate total known visits. ED/UCC VISIT TRACKING (12 MO.) 08/18/2019 08:34 [facility] [place] TYPE: Emergency COMPLAINT: - CHEST PAIN 05/30/2019 16:32 [facility] [place] TYPE: Emergency COMPLAINT: - FLANK PAIN,MEDICATION REFILL DIAGNOSES: - Nicotine dependence, unspecified, uncomplicated - Unspecified abdominal pain - Personal history of urinary calculi 11/03/2018 11:29 [facility] Marisela CORTEZ TYPE: Emergency DIAGNOSES: - Flank Pain - Unspecified renal colic - Calculus of kidney - left flank pain - kidney stones [facility] DIAGNOSES: - Hand wound - Unspecified open wound of unspecified finger without damage to nail, initial encounter INPATIENT VISIT TRACKING (12 MO.) No inpatient visits to display in this time frame [email or web address]
[2019-08-18] MEDS ORDERED: BENZONATATE100 MG PO (08:51)
[2019-08-18] MEDS ORDERED: VENTOLIN HFA18 GM INH (10:07)
--- NOTE | 2019-08-18 23:23 | EKG ---
[facility] [address] [place], [place] [address] Signed Sinus bradycardia Otherwise normal ECG No previous ECGs available Confirmed by JACQUELINE BRANDT MD ([id number]) on 08/18/2019 11:23:06 PM Electronically Signed By: JACQUELINE BRANDT MD 08/18/19 2323 PATIENT NAME: DAYANARA NÚÑEZ Electrocardiogram DATE OF : 58 PHYSICIAN: JACQUELINE BRANDT MD REPORT #: [id number] REPORT IS CONFIDENTIAL AND NOT TO BE RELEASED WITHOUT AUTHORIZATION
== END 2019-08-18 10:36 | disposition home or self-care (01) ==
LOC: ED 08:34
DX: R51 Headache (principal); R07.9 Chest pain, unspecified; J40 Bronchitis, not specified as acute or chronic; F17.200 Nicotine dependence, unspecified, uncomplicated; Z79.899 Other long term (current) drug therapy
CPT/HCPCS: 70450; 71046; 80053; 84484; 85025; 93005; 93010; 99285-25; A9270

== ENCOUNTER 2020-11-12 02:26 | Emergency (ER) | payer OTHER ==
[~2020-11-12] VITALS: Ht 170.2 cm; Wt 79.4 kg
[~2020-11-12 02:26] MED LIST changes: +BENZONATATE100 MG PO; +VENTOLIN HFA18 GM INH
--- OUTSIDE RECORDS SUMMARY | 2020-11-12 02:30 | XMS ---
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 Care History Medical/Surgical 06/01/2019 [facility] - [facility]W RECEIVED CASE MANAGEMENT REFERRAL-NO PCP. - CHW CALLED PATIENT- NUMBER IS NOT A GOOD CONTACT NUMBER FOR PATIENT. - CHW SENT NO PCP LETTER TO PATIENT. - PLEASE HAVE PATIENT PROVIDE VALID CONTACT NUMBER E.D. VISIT COUNT (12 MO.) 2 Javed Mejia 1 [facility]. TOTAL 3 NOTE: Visits indicate total known visits. ED/UCC VISIT TRACKING (12 MO.) 11/12/2020 02:27 [facility] [place] TYPE: Emergency COMPLAINT: - INJURED HAND 03/27/2020 20:31 [facility] [place] TYPE: Emergency DIAGNOSES: - Calculus in bladder - Bladder Pain - Calculus of kidney with calculus of ureter - Unspecified renal colic - back pain 02/05/2020 13:43 [facility] [place] TYPE: Emergency DIAGNOSES: - Laceration without foreign body of right thumb without damage to nail, initial encounter - Finger injury INPATIENT VISIT TRACKING (12 MO.) No inpatient visits to display in this time frame [email or web address]
== END 2020-11-12 03:51 | disposition home or self-care (01) ==
LOC: ED 02:26
DX: S61.411A Laceration without foreign body of right hand, initial encounter (principal); L98.9 Disorder of the skin and subcutaneous tissue, unspecified; F17.200 Nicotine dependence, unspecified, uncomplicated; X58.XXXA Exposure to other specified factors, initial encounter
CPT/HCPCS: 99282

== ENCOUNTER 2021-06-14 23:57 | Emergency (ER) | payer OTHER ==
[~2021-06-14] VITALS: Ht 170.2 cm; Wt 79.4 kg
--- OUTSIDE RECORDS SUMMARY | 2021-06-15 00:02 | XMS ---
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 Care History Medical/Surgical 06/01/2019 [facility] - CHW RECEIVED CASE MANAGEMENT REFERRAL-NO PCP. - CHW CALLED PATIENT- NUMBER IS NOT A GOOD CONTACT NUMBER FOR PATIENT. - W SENT NO PCP LETTER TO PATIENT. - PLEASE HAVE PATIENT PROVIDE VALID CONTACT NUMBER E.D. VISIT COUNT (12 MO.) 2 [facility] TOTAL 2 NOTE: Visits indicate total known visits. ED/UCC VISIT TRACKING (12 MO.) 06/14/2021 23:57 [facility] [place] TYPE: Emergency COMPLAINT: - EYE PAIN/INJURY 11/12/2020 02:27 [facility] [place] TYPE: Emergency COMPLAINT: - INJURED FINGER DIAGNOSES: - Disorder of the skin and subcutaneous tissue, unspecified - Laceration without foreign body of right hand, subsequent encounter - Disorder of the skin and subcutaneous tissue, unspecified - Nicotine dependence, unspecified, uncomplicated - Exposure to other specified factors, initial encounter - Laceration without foreign body of right hand, initial encounter INPATIENT VISIT TRACKING (12 MO.) No inpatient visits to display in this time frame [email or web address]
[2021-06-15] MEDS ORDERED: TAMSULOSIN HCL0.4 MG PO (00:26)
[2021-06-15] MEDS ORDERED: MELOXICAM5 MG PO (00:27)
== END 2021-06-15 01:12 | disposition home or self-care (01) ==
LOC: ED 23:57
DX: H16.133 Photokeratitis, bilateral (principal); F17.200 Nicotine dependence, unspecified, uncomplicated
CPT/HCPCS: 99283